=== PATIENT | female | born 1980 | race Caucasian/White ===

== ENCOUNTER 2022-05-01 12:31 | Inpatient (IN) ==
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
[2022-05-01] MEDS ORDERED: SODIUM CHLORIDE 0.9% 500 ML IV SCH (13:00)
[2022-05-01 13:12] LABS: Basophils # (auto) 0.03 K/uL (0-0.2); Basophils % (auto) 0.4 %; Eosinophils # (auto) 0.02 K/uL (0-0.50); Eosinophils % (auto) 0.2 %; Hematocrit (blood only) 42.6 % (34.1-44.9); Hemoglobin 14.6 g/dl (12.0-16.0); Immature Granulocytes # (auto) 0.02 K/uL (0.00-0.02); Immature Granulocytes % (auto) 0.2 %; Lymphocytes # (auto) 0.66 K/uL (1.2-3.4); Lymphocytes % (auto) 8.2 %; Mean Corpuscular Hemoglobin 31.7 pg (25.0-34.0); Mean Corpuscular Hgb Conc 34.3 g/dL (32.0-36.0); Mean Corpuscular Volume 92.6 fL (80.0-100.0); Mean Platelet Volume 11.1 fL (9.4-12.3); Monocytes # (auto) 0.41 K/uL (0.24-0.82); Monocytes % (auto) 5.1 %; Neutrophils % (auto) 85.9 %; Platelet Count 182 K/uL (130-400); RDW Coefficient of Variation 12.5 % (11.5-14.5); RDW Standard Deviation 42.3 fL (36.4-46.3); White Blood Count 8.04 K/ul (4.8-10.8)
[2022-05-01] MEDS ORDERED: ETOMIDATE 2 MG/ML 20 ML VIAL IV ONE (13:25)
[2022-05-01] MEDS ORDERED: SUCCINYLCHOLINE CHLORIDE 20 MG/ML 10 ML VIAL IV ONE (13:25)
[2022-05-01 13:35] LABS: Albumin Globulin Ratio 1.4 (0.9-2); BUN Creatinine Ratio 10.9 (10-20); Bilirubin,Total 0.7 mg/dl (0.2-1.0); Creatinine Clr Calc Pharmacy 69.1 ml/min; Est GFR (Non-African American) 76.8 ml/min; Globulin 2.8 gm/dl (2.5-4.0); Magnesium 2.3 mg/dl (1.7-2.4); Potassium 4.1 mmol/L (3.5-5.1); Total Protein 6.8 gm/dl (6.0-8.3)
[2022-05-01 13:44] LABS: Pregnancy Test, Serum Negative (Negative)
[2022-05-01 13:47] LABS: Prothrombin Time 10.6 Seconds (9.0-12.0)
--- NOTE | 2022-05-01 13:58 | CT Scan Report ---
CT SCAN OF THE BRAIN WITHOUT IV CONTRAST CLINICAL HISTORY: Overdose. Lethargy. COMPARISON STUDY: CT of the brain dated 04/11/2014. TECHNIQUE: Unenhanced axial CT scan of the brain is performed from the vertex to the skull base. A d ose lowering technique was utilized adhering to the principles of ALARA. CT DOSE: 537.48 mGy.cm FINDINGS: Brain parenchyma: The brain parenchyma is normal in appearance. There is no hemorrhage, mass effect, or evidence of acute territorial ischemia by CT criteria. Mejia-white matter differentiation is preser blanca. No extra-axial fluid collection is seen. Ventricles, sulci, cisterns: Normal in configuration. Intracranial vasculature: The visualized intracranial vasculature at the skull base is normal in appe arance. Calvarium: Unremarkable. Sinuses and mastoids: The visualized paranasal sinuses are clear. The mastoid air cells are well pneu matized. Orbits: The bony orbits are grossly intact. IMPRESSION: No acute intracranial abnormality. ACT 112: Negative or not required by law. Electronically signed by: Milan Martin M.D. 05/01/2022 1:56 PM
--- NOTE | 2022-05-01 14:01 | XRay Report ---
SINGLE VIEW CHEST CLINICAL HISTORY: Overdose. FINDINGS: An AP, portable, upright chest radiograph is obtained. No prior studies are available for c omparison at the time of dictation. The cardiomediastinal silhouette is unremarkable. The lungs and p leural spaces are clear noting bibasilar atelectasis. No pneumothorax is seen. The bony thorax is daysi ssly intact. IMPRESSION: No active disease in the chest. ACT 112: Negative or not required by law. Electronically signed by: Milan Martin M.D. 05/01/2022 2:00 PM
[2022-05-01] MEDS ORDERED: RAPID SEQUENCE INDUCTION BAG ONE (14:06)
[2022-05-01] MEDS ORDERED: fentaNYL citrate 100 MCG/2 ML VIAL IV PRN (14:24)
[2022-05-01] MEDS ORDERED: STAT IV Infusion **Titration per Protocol STA (14:34)
[2022-05-01] MEDS ORDERED: PROPOFOL IV EMULSION 10 MG/ML 100 ML VIAL IV ONE (14:35)
[2022-05-01] MEDS: propofoL 1,000 MG/100 ML VIAL IV SCH (14:42)
[2022-05-01 14:43] LABS: Appearance Urine Clear (Clear); Bilirubin Urine Negative (Negative); Blood Urine Negative (Negative); Color Urine Yellow; Glucose Urine UA Negative (Negative); Ketones Urine Negative (Negative); Leukocyte Esterase Urine Negative (Negative); Nitrite Urine Negative (Negative); Protein Urine Negative (Negative); Specific Gravity Urine 1.014 (1.000-1.030); Urobilinogen Urine Negative (Negative)
[2022-05-01] MEDS: PROPOFOL BOLUS FROM BAG IV PRN ×3 (14:43→15:16)
[2022-05-01 14:44] LABS: Acetaminophen < 3 ug/ml (10-30); Salicylate < 3.0 mg/dl (3.0-30)
--- NOTE | 2022-05-01 14:55 | XRay Report ---
SINGLE VIEW CHEST CLINICAL HISTORY: Intubation. FINDINGS: An AP, portable, supine chest radiograph is compared to study dated 05/01/2022. An endotrac heal tube has been placed. The tip projects at the level of the thoracic inlet 6.3 cm above the radha a. The cardiomediastinal silhouette is unremarkable. The lungs and pleural spaces are clear. No pneum othorax is seen. The bony thorax is grossly intact. IMPRESSION: 1. An endotracheal tube is in place. The tip projects at the level of the thoracic inlet. 2. The lungs are clear. ACT 112: Negative or not required by law. Electronically signed by: Milan Martin M.D. 05/01/2022 2:54 PM
[2022-05-01] MEDS ORDERED: SODIUM CHLORIDE 0.9% 1000ML 1,000 ML IV SCH (15:15)
--- NOTE | 2022-05-01 15:17 | History & Physical Report ---
Date of Service May 01, 2022 Assessment & Plan (1) Drug overdose: Plan: -Admit to ICU -At this time the patient is currently afebrile, hemodynamically stable and stable on the ventilator -Per the history, it appears that the patient took both xanax and trazadone, unclear if she did take buspar as well -Intubated to ensure her airway is protected -Will need to follow-up with urine tox screen when resulted -Continue propofol and fentanyl boluses for agitation while admitted -Ordered lactated ringer's at 80 mL/hr for now for maintenance fluids -Ordered am CXR whiled intubated and AM labs, monitor on tele and continuous pulse oximetry -Should consult Psychiatry when the patient has been extubated and alert -AM CBC, CMP, Mag, PT/INR (2) Anxiety: Plan: -Would continue buspar when she is alert and extubated, possibly continue xanax and trazodone but would be cautious (3) HTN (hypertension): Plan: -Hold lisinopril for now as she is hemodynamically stable and intubated Plan The patient was discussed with Dr. Apple at the time of the admission History of Present Illness Chief Complaint: Intentional Drug Overdose Primary Care Provider: NO PCP Radha is a 41 year old female with a PMH significant for anxiety, who presented to the [facility] ED today via EMS for intentional drug overdose. Per EMS and the ED staff, the patient took multiple medications last night at some point. EMS reports the patient sometime either last night or this morning 12 significant amount of trazodone and Xanax. They report they found the patient with an empty bottle of trazodone 50 mg tablets 30 tablets in the bottle unsure how many the patient may have took as the bottle is now empty. The patient also had 2 bottles of Xanax 1 pill 2 days ago for 60 tablets with 14 remaining 1 mg Xanax tablets. Another order bottle of Xanax was also found with the patient but is unclear if any were remaining in this as well. They state in the house they found a bag of some bupropion hidden elsewhere as well but they are unsure if the patient took any. During her time in the ED the patient became progressively more lethargic and there was concern for airway protection, for this reason the patient was intubated by ED staff prior to admission. In the ED the patient was found to be afebrile, hemodynamically stable, and stable on RA prior to intubation. CBC, CMP, PT/INR and UA were all unremarkable. Salicylates, acetaminophen level, and alcohol level were all negative, urine tox screen is pending. She was found to be covid negative. CT of the head and chest xray were negative for acute findings. Prior to admission the patient was started on a Propofol drip and intermittent fentanyl boluses due to increased agitation after intubation. At the time of the exam the patient was resting comfortably in bed in no acute distress. She is currently intubated and on the propofol drip at 35 mcg. History is unable to be obtained from the patient due to her current intubation status. I spoke to her family in the waiting room. They state that the patient has a history of anxiety and HTN, they believe she is normally on Lisinopril. They state that she has been in her normal state of health recently. Her cousin states that she wished her sister a happy anniversary last night on facebook. She has never tried to harm herself or take her life prior to this attempt. They state that her boyfriend found her this morning and then called EMS. Allergies Allergy/AdvReac Type Severity Reaction Status Date / Time Penicillins AdvReac Intermediate HALLUCINATI Verified 05/01/22 15:31 ONS Home Medications Medication Instructions Recorded Confirmed Type alprazolam 1 mg tablet 1 mg PO BID PRN Anxiety 05/01/22 05/01/22 History buspirone 30 mg tablet 30 mg PO BID 05/01/22 05/01/22 History trazodone 50 mg tablet 50 mg PO HS PRN Sleep 05/01/22 05/01/22 History Past Med/Surg History Medical History (Updated 05/01/22 @ 21:14 by Monae Apple MD) Anxiety HTN (hypertension) Surgical History (Updated 05/01/22 @ 21:18 by Monae Apple MD) History of tonsillectomy Family History (Updated 05/01/22 @ 21:19 by Monae Apple MD) Other Family history non-contributory Social History Smoking Status: Current every day smoker Cigarettes Per Day: 4; Hx Alcohol Use: Yes Alcohol type: hard liquor Hx Substance Use: No Preferred Language: Croatian Communication Ability: Effective Aircraft Accessories Mechanic Required: No Beliefs That Will Affect Care: None Current Living Situation: Alone Feels Safe at Home: Declines to Answer Assistive Devices: Contacts and Glasses Review of Systems Review of Systems: ROS unable to be obtained due to current intubation status Physical Exam Physical Exam: Physical Exam: General: In no acute distress, stated age, well-nourished, good hygiene, HEENT: Normocephalic, atraumatic, no scleral icterus, pupils around round, symmetrical, and reactive to light, moist mucus membranes, trachea midline, no thyromegaly Chest/Pulm: Currently intubated and on the ventilator, No respiratory distress, symmetrical chest expansion, clear breath sounds throughout Cardiac: Tachycardic rate, regular rhythm, no murmurs noted Abdomen: Negative for ascites and bruising, normoactive bowel sounds, soft, non-tender to palpation throughout : Patient with mercedes catheter in place, draining clear yellow urine Musculoskeletal: Symmetrical and without signs of acute trauma, upper and lower extremities with full ROM, no atrophy, spasticity, or flaccidity Extremities: Radial, dorsalis pedis, and posterior tibial pulses are intact and symmetrical, no edema noted in the BL LE's Skin: Warm, dry, no rashes , lesions, or scars noted Neuro: Alert and oriented to person, place, month, year, and president, no focal defects, CN II-XII tested and intact, finger to nose test negative, no tremors noted Psych: No acute distress, calm and cooperative during the exam Results & Data Results & Data ([facility]) Vital Signs (Past 12 Hours) Vital Signs Pulse Pulse Resp BP BP Pulse Ox O2 Del Method 05/01/22 15:06 97 H 20 128/88 100 Mechanical Vent 05/01/22 14:57 106 H 13 95 05/01/22 14:57 125/93 05/01/22 14:55 101 H 17 88 L 05/01/22 14:55 128/105 H 05/01/22 14:50 15 93 05/01/22 14:50 132/98 05/01/22 14:45 114/89 05/01/22 14:45 16 05/01/22 14:40 18 98 05/01/22 14:40 153/124 H 05/01/22 14:36 102 H 16 99 05/01/22 14:36 150/100 H 05/01/22 14:35 120 H 18 99 05/01/22 14:30 132 H 24 97 05/01/22 14:30 170/109 H 05/01/22 14:25 121 H 16 100 05/01/22 14:23 163/111 H 05/01/22 14:30 115 H 20 99 05/01/22 14:19 70 11 L 102/66 100 05/01/22 14:00 74 11 L 105/65 100 05/01/22 13:30 63 13 102/71 100 05/01/22 13:09 66 17 103/69 93 05/01/22 12:46 96 Room Air 05/01/22 12:46 96 Room Air 05/01/22 12:47 98 Room Air 05/01/22 12:47 62 15 116/67 98 Room Air FiO2 05/01/22 15:06 05/01/22 14:57 05/01/22 14:57 05/01/22 14:55 05/01/22 14:55 05/01/22 14:50 05/01/22 14:50 05/01/22 14:45 05/01/22 14:45 05/01/22 14:40 05/01/22 14:40 05/01/22 14:36 05/01/22 14:36 05/01/22 14:35 05/01/22 14:30 05/01/22 14:30 05/01/22 14:25 05/01/22 14:23 05/01/22 14:30 40 05/01/22 14:19 05/01/22 14:00 05/01/22 13:30 05/01/22 13:09 05/01/22 12:46 05/01/22 12:46 05/01/22 12:47 05/01/22 12:47 Laboratory Results Abnormal lab results 05/01/22 05/01/22 05/01/22 Range/Units 12:45 12:45 12:45 Neut # (Auto) 6.90 H (1.4-6.5) K/uL Lymph # (Auto) 0.66 L (1.2-3.4) K/uL Chloride 109 H (98-107) mmol/L AST 12 L (13-39) U/L Salicylates < 3.0 L (3.0-30) mg/dl Acetaminophen < 3 L (10-30) ug/ml Diagnostic Findings Head CT 05/01/22 12:47 CT SCAN OF THE BRAIN WITHOUT IV CONTRAST CLINICAL HISTORY: Overdose. Lethargy. COMPARISON STUDY: CT of the brain dated 04/11/2014. TECHNIQUE: Unenhanced axial CT scan of the brain is performed from the vertex to the skull base. A dose lowering technique was utilized adhering to the principles of ALARA. CT DOSE: 537.48 mGy.cm FINDINGS: Brain parenchyma: The brain parenchyma is normal in appearance. There is no hemorrhage, mass effect, or evidence of acute territorial ischemia by CT criteria. Mejia-white matter differentiation is preserved. No extra-axial fluid collection is seen. Ventricles, sulci, cisterns: Normal in configuration. Intracranial vasculature: The visualized intracranial vasculature at the skull base is normal in appearance. Calvarium: Unremarkable. Sinuses and mastoids: The visualized paranasal sinuses are clear. The mastoid air cells are well pneumatized. Orbits: The bony orbits are grossly intact. IMPRESSION: No acute intracranial abnormality. ACT 112: Negative or not required by law. Electronically signed by: Milan Martin M.D. 05/01/2022 1:56 PM Chest X-Ray 05/01/22 13:24 SINGLE VIEW CHEST CLINICAL HISTORY: Overdose. FINDINGS: An AP, portable, upright chest radiograph is obtained. No prior studies are available for comparison at the time of dictation. The cardiomediastinal silhouette is unremarkable. The lungs and pleural spaces are clear noting bibasilar atelectasis. No pneumothorax is seen. The bony thorax is grossly intact. IMPRESSION: No active disease in the chest. ACT 112: Negative or not required by law. Electronically signed by: Milan Martin M.D. 05/01/2022 2:00 PM Chest X-Ray 05/01/22 14:23 SINGLE VIEW CHEST CLINICAL HISTORY: Intubation. FINDINGS: An AP, portable, supine chest radiograph is compared to study dated 05/01/2022. An endotracheal tube has been placed. The tip projects at the level of the thoracic inlet 6.3 cm above the ina. The cardiomediastinal silhouette is unremarkable. The lungs and pleural spaces are clear. No pneumothorax is seen. The bony thorax is grossly intact. IMPRESSION: 1. An endotracheal tube is in place. The tip projects at the level of the thoracic inlet. 2. The lungs are clear. ACT 112: Negative or not required by law. Electronically signed by: Milan Martin M.D. 05/01/2022 2:54 PM ECG Additional Comments: 70 bpm sinus rhythm without PVC or PAC. QTc 470. QRS duration [address] segment elevation or depression with some nonspecific T wave changes. Code Status & VTE Plan Code Status FUll code VTE Prophylaxis Plan VTE Prophylaxis will be ordered: Yes Supervising Physician Co-Signing Physician Notes PA Supervision Note: I personally saw and examined the patient. I verified all garrett points and agree with SOUMYA Wright with the following exceptions and/or additions: S-this patient is a 41-year-old female with history of anxiety and possibly hypertension who presented to the ER after being found to be lethargic and suspected overdose of trazodone, Xanax, and possibly buspirone. She was already intubated by the time I saw her due to concern for airway protection due to significant lethargy in the ER. She was unable to provide any history. History obtained from family as per SOUMYA Wright's note above. O- Vitals reviewed Gen: [Sedated, intubated mechanically ventilated, NAD, thin] HEENT: [anicteric sclerae, EOMI, PERRL] CV: [RRR no mgr nl S1S2] Pulm: [CTAB no wcr] Abd: [+BS soft NT ND no masses or hernias] Ext: [no edema, 2+ DP pulses] Skin: [no rashes, warm/dry] Neuro: [Moving all extremities throughout spontaneously] Labs, Rads, and ECG reviewed A/K-3-hy[age]old female with history of anxiety and possibly hypertension, here with what seems to be an intentional overdose of trazodone, Xanax, and possibly buspirone. Urine drug screen is positive for benzodiazepines, marijuana, and ecstasy which may be a false positive due to bupropion or buspirone-both of which she has been prescribed in the recent past. Salicylates and APAP as well as alcohol are negative. CBC and CMP otherwise normal. Chest x-ray without pneumonia, UA is negative. She is intubated for airway protection due to significant lethargy from overdose. ECG with borderline prolonged QTC. Poison control recommended to the ER physician to recheck an EKG in 4 hours from the last to ensure QT was okay. -Admit to ICU -Appreciate ventilator management and encoding clerk management-plan to extubate when wakes up off of sedation -will need consult with psychiatry due to suicidal attempt and further explore depression -Supportive care, maintenance IV fluids, Mercedes catheter in place, no tube feeds for now as she will likely be extubated in a short amount of time -Follow labs in the morning -Hold all home medications for now PG Care Time/CCT Total # of Minutes Spent Total Time Spent with Patient: Total time spent is greater than 50% in coordination of care (as documented) at patient's floor/unit and/or counseling patient: Coding [place] [id number] Initial Inpt Care Lvl 2 Patient Type Established Medical Decision Making Moderate Complexity Diagnoses Drug overdose T50.904A Encounter type: initial encounter Injury intent: undetermined intent Anxiety F41.9 HTN (hypertension) I10 (1) Drug overdose Encounter type: initial encounter Injury intent: undetermined intent Qualified Code(s): T50.904A - Poisoning by unspecified drugs, medicaments and biological substances, undetermined, initial encounter
[2022-05-01 15:40] LABS: Amphetamines+Metham, Urine Neg (Neg); Barbiturates, Urine Neg (Neg); Benzodiazepine, Urine Pos (Neg); Cocaine, Urine Neg (Neg); MDMA (Ecstacy), Urine Pos (Neg); Methadone, Urine Neg (Neg); Opiate, Urine Neg (Neg); Phencyclidine, Urine Neg (Neg)
[2022-05-01] MEDS ORDERED: ICU PROTOCOL FOR HYPERGLYCEMIA PRN (16:18)
--- NOTE | 2022-05-01 16:32 | Critical Care Consultation ---
Date of Consultation May 01, 2022 Assessment & Plan (1) Drug overdose: Plan Impression: 41-year-old female with presumptive overdose of benzodiazepines, possible trazodone, and possibly bupropion intubated for airway protection in the emergency room. She is hemodynamically stable. Urine tox is as noted above. No anion gap. No evidence of other ingestions. Her EKG demonstrated normal QRS and QT without prolongation Recommendations: 1. Propofol will be discontinued. Once the patient is awake and breathing spontaneously, she will be extubated. 2. Supportive care will be offered. Given short half-life of benzodiazepines, the patient is not at risk for rebound. No indication for reversal agents currently. 3. Potential suicide events: Continue suicide precautions. The patient will require psychiatric evaluation once medically cleared. 4. We will hold all of her other antianxiety and antidepressant medications until the patient has had an opportunity to be evaluated by psychiatry and she is cleared. 5. At this point time the patient likely does not need DVT or GI prophylaxis as anticipate she will be extubated and relative short order. Once the patient is extubated, she can transfer out of the intensive care unit. Critical care services will sign off at that point time. Plan was discussed with critical care nursing, respiratory therapy, and family members at bedside. Questions were answered to the best my ability. They expressed understanding and are in agreement with plan as outlined History of Present Illness Attending Physician: Monae Apple MD History of Present Illness Asked by hospitalist to assist in evaluation management this patient intubated for overdose. History is obtained from review electronic medical record and discussion with the ER staff as the patient is unable to provide any history. Family members were interviewed at bedside. The patient is a 41-year-old female with a history of hypertension anxiety and depression. She was apparently found altered today and was brought into the emergency room. According to the ER notes, the patient had an altercation with her significant other and this may have been a suicide attempt. Reportedly there were about 40+ tablets of Xanax that were missing as well as potential trazodone and bupropion. The patient became lethargic in the emergency room and was intubated for airway protection. She was initiated on propofol. Her remaining evaluation in the emergency room was unrevealing. On assessment in the ICU the patient is sedated on propofol. I positive and transitioned her to spontaneous ventilation. She appears to be breathing currently but remains somewhat lethargic likely due to propofol. She is hemodynamically stable. Allergies Allergy/AdvReac Type Severity Reaction Status Date / Time Penicillins AdvReac Intermediate HALLUCINATI Verified 05/01/22 15:31 ONS Home Medications Medication Instructions Recorded Confirmed Type alprazolam 1 mg tablet 1 mg PO BID PRN Anxiety 05/01/22 05/01/22 History buspirone 30 mg tablet 30 mg PO BID 05/01/22 05/01/22 History trazodone 50 mg tablet 50 mg PO HS PRN Sleep 05/01/22 05/01/22 History Patient History Social History Smoking Status: Current every day smoker Preferred Language: Frisian Feels Safe at Home: Yes Review of Systems Review of Systems: Unobtainable due to endotracheal tube Physical Exam Constitutional: WD/WN, vitals as above Neck: trachea midline, no thyromegaly Respiratory: normal respiratory effort, lungs clear to auscultation Cardiovascular: RRR, no murmur, no edema Gastrointestinal (Abdomen): normal bowel sounds, soft, nontender, no hepatosplenomegaly Musculoskeletal: Extremities: extremities normal to inspection Skin: no rashes, warm and dry Neurologic: Nonfocal exam Lymphatic: no cervical lymphadenopathy Results & Data Results & Data ([facility]) Vital Signs (Past 12 Hours) Vital Signs Pulse Pulse Resp BP BP Pulse Ox O2 Del Method 05/01/22 16:04 84 17 100 05/01/22 15:42 92 H 17 134/80 100 Mechanical Vent 05/01/22 15:30 94 H 18 135/80 99 05/01/22 15:18 92 H 17 126/83 100 Mechanical Vent 05/01/22 15:06 97 H 20 128/88 100 Mechanical Vent 05/01/22 14:57 106 H 13 95 05/01/22 14:57 125/93 05/01/22 14:55 101 H 17 88 L 05/01/22 14:55 128/105 H 05/01/22 14:50 15 93 05/01/22 14:50 132/98 05/01/22 14:45 114/89 05/01/22 14:45 16 05/01/22 14:40 18 98 05/01/22 14:40 153/124 H 05/01/22 14:36 102 H 16 99 05/01/22 14:36 150/100 H 05/01/22 14:35 120 H 18 99 05/01/22 14:30 132 H 24 97 05/01/22 14:30 170/109 H 05/01/22 14:25 121 H 16 100 05/01/22 14:23 163/111 H 05/01/22 14:30 115 H 20 99 05/01/22 14:19 70 11 L 102/66 100 05/01/22 14:00 74 11 L 105/65 100 05/01/22 13:30 63 13 102/71 100 05/01/22 13:09 66 17 103/69 93 05/01/22 12:46 96 Room Air 05/01/22 12:46 96 Room Air 05/01/22 12:47 98 Room Air 05/01/22 12:47 62 15 116/67 98 Room Air FiO2 05/01/22 16:04 30 05/01/22 15:42 05/01/22 15:30 05/01/22 15:18 05/01/22 15:06 05/01/22 14:57 05/01/22 14:57 05/01/22 14:55 05/01/22 14:55 05/01/22 14:50 05/01/22 14:50 05/01/22 14:45 05/01/22 14:45 05/01/22 14:40 05/01/22 14:40 05/01/22 14:36 05/01/22 14:36 05/01/22 14:35 05/01/22 14:30 05/01/22 14:30 05/01/22 14:25 05/01/22 14:23 05/01/22 14:30 40 05/01/22 14:19 05/01/22 14:00 05/01/22 13:30 05/01/22 13:09 05/01/22 12:46 05/01/22 12:46 05/01/22 12:47 05/01/22 12:47 Laboratory Results Anion gap normal Urine tox positive for MDMA, benzodiazepines, and marijuana Critical Care Results & Data Vital Signs (Past 12 Hours) Vital Signs Pulse Pulse Resp BP BP Pulse Ox O2 Del Method 05/01/22 16:04 84 17 100 05/01/22 15:42 92 H 17 134/80 100 Mechanical Vent 05/01/22 15:30 94 H 18 135/80 99 05/01/22 15:18 92 H 17 126/83 100 Mechanical Vent 05/01/22 15:06 97 H 20 128/88 100 Mechanical Vent 05/01/22 14:57 106 H 13 95 05/01/22 14:57 125/93 05/01/22 14:55 101 H 17 88 L 05/01/22 14:55 128/105 H 05/01/22 14:50 15 93 05/01/22 14:50 132/98 05/01/22 14:45 114/89 05/01/22 14:45 16 05/01/22 14:40 18 98 05/01/22 14:40 153/124 H 05/01/22 14:36 102 H 16 99 05/01/22 14:36 150/100 H 05/01/22 14:35 120 H 18 99 05/01/22 14:30 132 H 24 97 05/01/22 14:30 170/109 H 05/01/22 14:25 121 H 16 100 05/01/22 14:23 163/111 H 05/01/22 14:30 115 H 20 99 05/01/22 14:19 70 11 L 102/66 100 05/01/22 14:00 74 11 L 105/65 100 05/01/22 13:30 63 13 102/71 100 05/01/22 13:09 66 17 103/69 93 05/01/22 12:46 96 Room Air 05/01/22 12:46 96 Room Air 05/01/22 12:47 98 Room Air 05/01/22 12:47 62 15 116/67 98 Room Air FiO2 05/01/22 16:04 30 05/01/22 15:42 05/01/22 15:30 05/01/22 15:18 05/01/22 15:06 05/01/22 14:57 05/01/22 14:57 05/01/22 14:55 05/01/22 14:55 05/01/22 14:50 05/01/22 14:50 05/01/22 14:45 05/01/22 14:45 05/01/22 14:40 05/01/22 14:40 05/01/22 14:36 05/01/22 14:36 05/01/22 14:35 05/01/22 14:30 05/01/22 14:30 05/01/22 14:25 05/01/22 14:23 05/01/22 14:30 40 05/01/22 14:19 05/01/22 14:00 05/01/22 13:30 05/01/22 13:09 05/01/22 12:46 05/01/22 12:46 05/01/22 12:47 05/01/22 12:47 Lab & Micro Results (Past 24 Hours) RBC 4.60 M/uL (3.93-5.22) 05/01/22 WBC 8.04 K/ul (4.8-10.8) 05/01/22 Hgb 14.6 g/dl (12.0-16.0) 05/01/22 Hct 42.6 % (34.1-44.9) 05/01/22 MCV 92.6 fL (80.0-100.0) 05/01/22 MCH 31.7 pg (25.0-34.0) 05/01/22 MCHC 34.3 g/dL (32.0-36.0) 05/01/22 RDW Standard Deviation 42.3 fL (36.4-46.3) 05/01/22 RDW Coefficient of Variation 12.5 % (11.5-14.5) 05/01/22 Plt Count 182 K/uL (130-400) 05/01/22 MPV 11.1 fL (9.4-12.3) 05/01/22 Neutrophils (%) (Auto) 85.9 % 05/01/22 Lymphocytes (%) (Auto) 8.2 % 05/01/22 Monocytes # (Auto) 0.41 K/uL (0.24-0.82) 05/01/22 Eosinophils # (Auto) 0.02 K/uL (0-0.50) 05/01/22 Immature Granulocyte % (Auto) 0.2 % 05/01/22 Neutrophils # (Auto) 6.90 K/uL (1.4-6.5) H 05/01/22 Lymphocytes # (Auto) 0.66 K/uL (1.2-3.4) L 05/01/22 Monocytes # (Auto) 0.41 K/uL (0.24-0.82) 05/01/22 Eosinophils # (Auto) 0.02 K/uL (0-0.50) 05/01/22 Basophils # (Auto) 0.03 K/uL (0-0.2) 05/01/22 Immature Granulocyte # (Auto) 0.02 K/uL (0.00-0.02) 2 Na 142 mmol/L (136-145) 05/01/22 K 4.1 mmol/L (3.5-5.1) 05/01/22 Cl 109 mmol/L (98-107) H 05/01/22 CO2 26 mmol/L (21-32) 05/01/22 Anion Gap 7 (3-11) 05/01/22 BUN 10 mg/dl (6-23) 05/01/22 Creatinine 0.92 mg/dl (0.6-1.2) 05/01/22 Estimated GFR ( Amer) 89.0 ml/min 05/01/22 Estimated GFR (Non-Af Amer) 76.8 ml/min 05/01/22 BUN/Creatinine Ratio 10.9 (10-20) 05/01/22 Glu 84 mg/dl (70-99(Fasting)) 05/01/22 Ca 9.0 mg/dl (8.5-10.1) 05/01/22 Total Bilirubin 0.7 mg/dl (0.2-1.0) 05/01/22 AST 12 U/L (13-39) L 05/01/22 ALT 8 U/L (7-52) 05/01/22 Alkaline Phosphatase 64 U/L (34-104) 05/01/22 TP 6.8 gm/dl (6.0-8.3) 05/01/22 Albumin 4.0 gm/dl (3.4-5.0) 05/01/22 Globulin 2.8 gm/dl (2.5-4.0) 05/01/22 Albumin/Globulin Ratio 1.4 (0.9-2) 05/01/22 Mg 2.3 mg/dl (1.7-2.4) 05/01/22 12:45 Calcium Level 9.0 mg/dl (8.5-10.1) 05/01/22 12:45 Prothromb Time International Ratio 1.0 (0.9-1.1) 05/01/22 12:4 5 Diagnostic Findings (Past 24 Hours) Head CT 05/01/22 12:47 CT SCAN OF THE BRAIN WITHOUT IV CONTRAST CLINICAL HISTORY: Overdose. Lethargy. COMPARISON STUDY: CT of the brain dated 04/11/2014. TECHNIQUE: Unenhanced axial CT scan of the brain is performed from the vertex to the skull base. A dose lowering technique was utilized adhering to the principles of ALARA. CT DOSE: 537.48 mGy.cm FINDINGS: Brain parenchyma: The brain parenchyma is normal in appearance. There is no hemorrhage, mass effect, or evidence of acute territorial ischemia by CT criteria. Mejia-white matter differentiation is preserved. No extra-axial fluid collection is seen. Ventricles, sulci, cisterns: Normal in configuration. Intracranial vasculature: The visualized intracranial vasculature at the skull base is normal in appearance. Calvarium: Unremarkable. Sinuses and mastoids: The visualized paranasal sinuses are clear. The mastoid air cells are well pneumatized. Orbits: The bony orbits are grossly intact. IMPRESSION: No acute intracranial abnormality. ACT 112: Negative or not required by law. Electronically signed by: Milan Martin M.D. 05/01/2022 1:56 PM Chest X-Ray 05/01/22 13:24 SINGLE VIEW CHEST CLINICAL HISTORY: Overdose. FINDINGS: An AP, portable, upright chest radiograph is obtained. No prior studies are available for comparison at the time of dictation. The cardi omediastinal silhouette is unremarkable. The lungs and pleural spaces are clear noting bibasilar atelectasis. No pneumothorax is seen. The bony thorax is grossly intact. IMPRESSION: No active disease in the chest. ACT 112: Negative or not required by law. Electronically signed by: Milan Martin M.D. 05/01/2022 2:00 PM Chest X-Ray 05/01/22 14:23 SINGLE VIEW CHEST CLINICAL HISTORY: Intubation. FINDINGS: An AP, portable, supine chest radiograph is compared to study dated 05/01/2022. An endotracheal tube has been placed. The tip projects at the level of the thoracic inlet 6.3 cm above the ina. The cardiomediastinal silhouette is unremarkable. The lungs and pleural spaces are clear. No pneumothorax is seen. The bony thorax is grossly intact. IMPRESSION: 1. An endotracheal tube is in place. The tip projects at the level of the thoracic inlet. 2. The lungs are clear. ACT 112: Negative or not required by law. Electronically signed by: Milan Martin M.D. 05/01/2022 2:54 PM I & O Totals 24 Hours 04/30/22 05/01/22 05/02/22 06:59 06:59 06:59 Intake Total 503.207 / 503.207 Balance 503.207 / 503.207 Cumulative 05/01/22 12:11 thru 05/01/22 15:03 Intake Total 503.207 Balance 503.207 RT Ventilator Mngmt (Last Documented) Ventilator Ordered Settings Ventilator Support Mode Assist Control 05/01/22 16:04 Respiratory Rate 17 05/01/22 16:04 Ventilator Tidal Volume 450 05/01/22 16:04 Setting Minute Ventilation 7 05/01/22 16:04 Positive End Expiratory 5 05/01/22 16:04 Pressure Fraction of Inspired Oxygen 30 05/01/22 16:04 Ventilator - PT Measurements Respiratory Rate 17 Exhaled Tidal Volume 452 Minute Ventilation 7 Peak Inspiratory Airway 18 Pressure Plateau Pressure 16 Respiratory Cycle Inspiratory: 1:2.7 Expiratory Ratio Inspiratory Phase Time 1 End-Tidal CO2 35 Static Lung Compliance 41.09 Dynamic Lung Compliance 34.77 Normal Static Lung Compliance 48.00 Coding Level of Care Code 68149 Inpt Consult Level 4 Diagnoses Drug overdose T50.904A Encounter type: initial encounter Injury intent: undetermined intent (1) Drug overdose Encounter type: initial encounter Injury intent: undetermined intent Qualified Code(s): T50.904A - Poisoning by unspecified drugs, medicaments and biological substances, undetermined, initial encounter
[2022-05-01] MEDS: LACTATED RINGER'S 1,000 ML IV SCH (17:54)
[2022-05-02] MEDS: propofoL 1,000 MG/100 ML VIAL IV SCH (03:44)
[2022-05-02] MEDS: LACTATED RINGER'S 1,000 ML IV SCH (04:03)
[2022-05-02 05:59] LABS: Basophils # (auto) 0.03 K/uL (0-0.2); Basophils % (auto) 0.3 %; Hematocrit (blood only) 40.7 % (34.1-44.9); Hemoglobin 13.8 g/dl (12.0-16.0); Immature Granulocytes # (auto) 0.04 K/uL (0.00-0.02); Immature Granulocytes % (auto) 0.4 %; Lymphocytes # (auto) 1.09 K/uL (1.2-3.4); Lymphocytes % (auto) 10.4 %; Mean Corpuscular Hgb Conc 33.9 g/dL (32.0-36.0); Mean Corpuscular Volume 94.4 fL (80.0-100.0); Mean Platelet Volume 11.3 fL (9.4-12.3); Monocytes # (auto) 0.81 K/uL (0.24-0.82); Monocytes % (auto) 7.7 %; Neutrophils % (auto) 80.2 %; Platelet Count 149 K/uL (130-400); RDW Coefficient of Variation 12.2 % (11.5-14.5); RDW Standard Deviation 42.4 fL (36.4-46.3); Red Blood Count 4.31 M/uL (3.93-5.22); White Blood Count 10.47 K/ul (4.8-10.8)
[2022-05-02 06:16] LABS: Prothrombin Time 10.3 Seconds (9.0-12.0)
[2022-05-02 06:29] LABS: Albumin Globulin Ratio 1.7 (0.9-2); Albumin Level 3.6 gm/dl (3.4-5.0); BUN Creatinine Ratio 8.4 (10-20); Bilirubin,Total 0.9 mg/dl (0.2-1.0); Calcium 8.2 mg/dl (8.5-10.1); Creatinine Clr Calc Pharmacy 75.6 ml/min; Est GFR (African American) 100.8 ml/min; Globulin 2.1 gm/dl (2.5-4.0); Magnesium 1.9 mg/dl (1.7-2.4); Phosphorus 2.7 mg/dl (2.5-4.9); Potassium 3.6 mmol/L (3.5-5.1); Total Protein 5.7 gm/dl (6.0-8.3)
[2022-05-02] MEDS ORDERED: FLUARIX QUADRIVALENT 0.5 ML SYR IM ONE (09:00)
--- NOTE | 2022-05-02 09:42 | Critical Care Progress Note ---
Date of Service May 02, 2022 Assessment & Plan (1) Drug overdose: Plan: Reason Critically Ill: 41-year-old female here with a PMHx significant for hypertension, anxiety, and depression who presented with altered mentation and who was admitted for drug overdose (benzodiazepines, trazodone, or bupropion). Neuro - CAM ICU: NEGATIVE Sedation: None Analgesia: None Cardiac - * Hypertension: Patient is apparently managed with lisinopril, which was not seen in her chart. Holding antihypertensives. Patient MAP currently >65. Respiratory - * Hypoxia: Patient is currently saturating well on 3 L oxygen delivered via nasal cannula. She remains tachypneic, with rates in the mid 20s. This should improve with ventilatory support. GI - * N.p.o. reevaluate once patient awakes RENAL/LYTES - * No significant electrolyte derangement. * Replace lytes as needed. - * No concerns at this time. ENDO * No concerns at this time. HEME - * Stable H&H. * Will monitor for any drops in the setting of Heparin gtt ID - * No concerns for infection at this point. * Monitor fever curve. INTEGUMENTARY - * No concerns at this time. LINES/IV ACCESS - PIVs intact. DVT PROPHYLAXIS - * Heparin gtt. Thank you for allowing us to be part of this patient's care. Please refer to Dr. Yoon's documentation for any further recommendations. Plan Dr. Frank was resident physician during care of patient. I separately evaluated patient for garrett portions of the history and the exam. I was present during the critical portion of medical decision making, and I discussed the case with the resident. I generally agree with the findings and plan. Patient was able to follow commands this morning, successfully extubated. Advised psychiatry of extubation. Patient stable for downgrade out of ICU. -Added Lovenox for DVT prophylaxis secondary to patient not being in the ambulatory status. Admission and Anticipated Discharge Date Admission Date: May 01, 2022 Subjective No acute events overnight. No acute complaints at this time. Review of Systems Review of Systems: All systems reviewed & are unremarkable except as noted in HPI & below Physical Exam Physical Exam: General: Intubated on Mechanical Ventilator, Ill Appearing, No outward distress HEENT: Neck supple, Trachea midline Cardiac: RRR, No Murmurs, No Rubs, No Gallops Respiratory: Intubated on mechanical ventilation, No wheezing, No rales, No rhonchi Abdominal: To auscultation bowel sounds present in all four quadrants, To palpitation abd is soft with no tenderness to palpitation, no hepatosplenomegaly, no pulsatile masses Results & Data Results & Data ([facility]) Vital Signs (Past 12 Hours) Vital Signs Temp Pulse Resp BP BP Pulse Ox FiO2 05/02/22 08:30 78 25 H 98 05/02/22 08:00 93 H 27 H 99 05/02/22 08:00 123/86 05/02/22 08:00 37.4 C 05/02/22 07:10 84 14 98 30 05/02/22 05:00 89 14 99 05/02/22 04:30 92 H 16 99 05/02/22 05:14 37.3 C 05/02/22 04:05 85 21 97 05/02/22 04:00 85 17 96 05/02/22 04:00 103/67 05/02/22 03:55 88 17 97 05/02/22 03:50 91 H 17 97 05/02/22 04:00 30 05/02/22 03:30 88 19 97 05/02/22 03:00 96 H 16 98 05/02/22 03:00 121/81 05/02/22 02:30 92 H 22 100 05/02/22 01:30 129 H 26 H 96 05/02/22 01:00 85 17 97 05/02/22 01:00 103/63 05/02/22 00:30 88 16 98 05/02/22 03:27 100 H 12 97 30 05/01/22 23:45 94 H 13 99 30 05/02/22 00:00 98 H 12 100 05/02/22 00:00 146/86 H 05/02/22 00:00 30 05/01/22 23:00 86 15 98 05/01/22 23:00 37.4 C 124/85 05/01/22 22:51 90 05/01/22 22:00 86 17 98 05/01/22 22:00 135/89 Resident Activity Tracking Resident Involvement: Resident Care Provided Care Provided: Adult Hospital Medicine (1) Drug overdose Encounter type: initial encounter Injury intent: undetermined intent Qualified Code(s): T50.904A - Poisoning by unspecified drugs, medicaments and biological substances, undetermined, initial encounter
[2022-05-02] MEDS ORDERED: SODIUM CHLORIDE 0.9% 250 ML IV PRN (10:15)
[2022-05-02] MEDS ORDERED: ENOXAPARIN INJ 30 MG/0.3 ML SYR SQ ONE (10:15)
--- NOTE | 2022-05-02 12:26 | XRay Report ---
XR chest 1V portable CLINICAL HISTORY: Intubation status TECHNIQUE: Single frontal radiograph of the chest was obtained. Comparison: Comparison is made to chest radiograph 05/01/2022 FINDINGS: Endotracheal tube is in satisfactory position, the tip is approximately 30 mm of the ina. The card iomediastinal silhouette is normal. The lungs are clear. No evidence of pleural effusion or pneumotho rax. IMPRESSION: Satisfactory position of endotracheal tube. No acute abnormalities are seen. ACT 112: Negative or not required by law. Electronically signed by: Ant Centeno M.D. 05/02/2022 12:24 PM
--- NOTE | 2022-05-02 12:27 | Billing Data ---
Date of Service May 02, 2022 Coding Level of Care Code 39369 Subseq Hosp Care Lvl 2
--- NOTE | 2022-05-02 13:03 | Psychiatric Consultation ---
Date of Consultation May 02, 2022 Impression / Recommendations Impression 41 yo female s/p benzo and trazodone OD, takes Xanax 1 mg BID chronically, reports intentional suicide attempt. (1) Major depression: (2) Drug overdose: Encounter type: initial encounter Injury intent: undetermined intent Qualified Code(s): T50.904A - Poisoning by unspecified drugs, medicaments and biological substances, undetermined, initial encounter (3) Anxiety: Plan inpatient psychiatric hospitalization when medically cleared cannot leave hospital AMA as significant OD and would meet criteria for 302 commitment, currently states she is willing for voluntary but MS is still clearing. 1 on 1 on med floor as suicide attempt and not in low ligature environment would not restart any psychiatric medications at this time, stopping Xanax abruptly could cause some withdrawal symptoms after this acute phase, would prefer prn Ativan 0.5 mg q 4 hr for withdrawal only over additional Xanax. Psych History Identifying Data 41 yo female with hx of anxiety/depression, admit ICU s/p intentional ingestion of significant amount of Xanax and trazodone. Was intubated in ED due to sedation for airway protection, just extubated this am. Chief Complaint some ongoing confusion/sedation, 1-on-1 at bedside, sister also present with patient's permission. History of Present Illness Patient was still rather limited in history, completed a PHQ-9 which was 26 (scored 3 on everything, including SI except 2 on appetite). Family initially thought she seemed fine and that this attempt was out of the blue but there was some concern about a recent argument with her paramour. Patient admit to liaison that she had planned the ingestion. She had just filled Xanax 1 mg BID (p rescribed in this dose all year by outpatient psychiatrist Dr. Burk) for 60 pills, only 14 lift, unknown amount of trazodone. It is unclear whether she took any buspar or an old rx of Wellbutrin. Patient is having some tremor and ongoing sedation/low BP but will be moving from ICU to medical floor. Past Psychiatric History Outpatient Services: [facility] Previous Psych Admissions: none History of Previous Suicide Attempt: No Past Medication Trials: Zoloft, Wellbutrin, Lexapro, Buspar Allergies Allergy/AdvReac Type Severity Reaction Status Date / Time Penicillins AdvReac Intermediate HALLUCINATI Verified 10/23/22 15:31 ONS Home Medications Medication Instructions Recorded Confirmed Type alprazolam 1 mg tablet 1 mg PO BID PRN Anxiety 05/01/22 05/01/22 History buspirone 30 mg tablet 30 mg PO BID 05/01/22 05/01/22 History trazodone 50 mg tablet 50 mg PO HS PRN Sleep 05/01/22 05/01/22 History Family History believes her mother was depressed Substance Abuse History some MJ use, occasional ETOH Personal History Living Arrangements: Home (with boyfriend, 6 yo son) Highest Grade Completed: College 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[employer]) Beliefs That Will Affect Care: None History of Legal Problems: denied Psychological Trauma History Comment: no elicited Patient History Medical History Anxiety HTN (hypertension) Surgical History History of tonsillectomy Family History (Updated 05/01/22 @ 21:19 by Monae Apple MD) Other Family history non-contributory Social History Smoking Status: Current every day smoker Cigarettes Per Day: 4; Hx Alcohol Use: Yes Alcohol type: hard liquor Hx Substance Use: No Preferred Language: Hungarian Communication Ability: Effective 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 Beliefs That Will Affect Care: None Current Living Situation: Alone Feels Safe at Home: Declines to Answer Assistive Devices: None Physical Exam Psychiatric: Orientation: alert Apperance: + disheveled Eye Contact: + poor eye contact Motor Behavior: no abnormal motor movements Speech: + abnormal rate/rhythm/volume of speech (slow, soft) Affect: + depressed affect Mood: + depressed mood Thought Process: + concrete thought process Thought Content: reality based without delusions Suicidal Thoughts: denies suicidal plan (that would act on in hospital) and denies suicidal intent; + reports suicidal thoughts Homicidal Thoughts: denies homicidal thoughts Hallucinations: no auditory hallucinations and no visual hallucinations Cognition: language grossly intact; + attention not intact Insight: + limited insight Judgement: + limited judgement Vital Signs (Past 24 Hours): Last Vital Signs Temp 37.4 C 05/02/22 08:00 Pulse 78 05/02/22 11:00 Resp 33 H 05/02/22 11:00 BP 83/61 L 05/02/22 10:35 Pulse Ox 98 05/02/22 11:00 O2 Del Method 05/01/22 19:32 FiO2 30 05/02/22 07:10 Review of Systems All systems reviewed & are unremarkable except as noted in HPI & below Results & Data (PSY) Laboratory Results 05/02/22 05/02/22 05/02/22 Range/Units 07:23 05:14 05:14 WBC (4.8-10.8) K/ul RBC (3.93-5.22) M/uL Hgb (12.0-16.0) g/dl Hct (34.1-44.9) % MCV (80.0-100.0) fL MCH (25.0-34.0) pg MCHC (32.0-36.0) g/dL RDW Std Deviation (36.4-46.3) fL RDW Coeff of Carolyn (11.5-14.5) % Plt Count (130-400) K/uL MPV (9.4-12.3) fL Immature Gran % (Auto) % Neut % (Auto) % Lymph % (Auto) % Cannon % (Auto) % Eos % (Auto) % Baso % (Auto) % Neut # (Auto) (1.4-6.5) K/uL Lymph # (Auto) (1.2-3.4) K/uL Cannon # (Auto) (0.24-0.82) K/uL Eos # (Auto) (0-0.50) K/uL Baso # (Auto) (0-0.2) K/uL Immature Gran # (Auto) (0.00-0.02) K/uL PT 10.3 (9.0-12.0) Seconds INR 1.0 (0.9-1.1) Sodium 141 (136-145) mmol/L Potassium 3.6 (3.5-5.1) mmol/L Chloride 111 H (98-107) mmol/L Carbon Dioxide 26 (21-32) mmol/L Anion Gap 4 (3-11) BUN 7 (6-23) mg/dl Creatinine 0.83 (0.6-1.2) mg/dl Est Cr Clr Drug Dosing 75.6 ml/min Est GFR ( Amer) 100.8 ml/min Est GFR (Non-Af Amer) 87.0 ml/min BUN/Creatinine Ratio 8.4 L (10-20) Glucose 89 (70-99(Fasting)) mg/dl POC Glucose 90 (70-99) mg/dl Calcium 8.2 L (8.5-10.1) mg/dl Phosphorus 2.7 (2.5-4.9) mg/dl Magnesium 1.9 (1.7-2.4) mg/dl Total Bilirubin 0.9 (0.2-1.0) mg/dl AST 16 (13-39) U/L ALT 9 (7-52) U/L Alkaline Phosphatase 63 (34-104) U/L Total Creatine Kinase (26-192) U/L Total Protein 5.7 L (6.0-8.3) gm/dl Albumin 3.6 (3.4-5.0) gm/dl Globulin 2.1 L (2.5-4.0) gm/dl Albumin/Globulin Ratio 1.7 (0.9-2) HCG, Qual (Negative) Urine Color Urine Appearance (Clear) Urine pH (4.5-7.5) Ur Specific [place] (1.000-1.030) Urine Protein (Negative) Urine Glucose (UA) (Negative) Urine Ketones (Negative) Urine Blood (Negative) Urine Nitrite (Negative) Urine Bilirubin (Negative) Urine Urobilinogen (Negative) Ur Leukocyte Esterase (Negative) Nasal Screen MRSA (PCR) (Negative) Salicylates (3.0-30) mg/dl Urine Opiates Screen (Neg) Ur Methadone, Qual (Neg) Acetaminophen (10-30) ug/ml Urine Barbiturates (Neg) Ur Phencyclidine (PCP) (Neg) U Amphetamin/Meth Scrn (Neg) Urine MDEA MDMA (Ecstasy) Screen (Neg) MDMA Urine MDMA U OH-Alprazolam Confrm U Benzodiazepines Scrn (Neg) 7-Amino Clonazepam Ur Nordiazepam Confirm U OH-ethylflurazepam U Lorazepam Cnf GC/MS U Oxazepam Confm GC/MS Ur Temazepam Confirm U OH-Triazolam Confirm U OH-Midazolam Confirm Ur Cocaine Metabolite (Neg) U Marijuana (THC) Screen (Neg) U Marijuana THC Carboxy Drug Screen Comment Ethyl Alcohol mg/dL (<10.0) mg/dl SARS-CoV-2, RNA, NAAT (NEGATIVE) 05/02/22 05/01/22 05/01/22 Range/Units 05:14 Unknown 23:27 WBC 10.47 (4.8-10.8) K/ul RBC 4.31 (3.93-5.22) M/uL Hgb 13.8 (12.0-16.0) g/dl Hct 40.7 (34.1-44.9) % MCV 94.4 (80.0-100.0) fL MCH 32.0 (25.0-34.0) pg MCHC 33.9 (32.0-36.0) g/dL RDW Std Deviation 42.4 (36.4-46.3) fL RDW Coeff of Carolyn 12.2 (11.5-14.5) % Plt Count 149 (130-400) K/uL MPV 11.3 (9.4-12.3) fL Immature Gran % (Auto) 0.4 % Neut % (Auto) 80.2 % Lymph % (Auto) 10.4 % Cannon % (Auto) 7.7 % Eos % (Auto) 1.0 % Baso % (Auto) 0.3 % Neut # (Auto) 8.40 H (1.4-6.5) K/uL Lymph # (Auto) 1.09 L (1.2-3.4) K/uL Cannon # (Auto) 0.81 (0.24-0.82) K/uL Eos # (Auto) 0.10 (0-0.50) K/uL Baso # (Auto) 0.03 (0-0.2) K/uL Immature Gran # (Auto) 0.04 H (0.00-0.02) K/uL PT (9.0-12.0) Seconds INR (0.9-1.1) Sodium (136-145) mmol/L Potassium (3.5-5.1) mmol/L Chloride (98-107) mmol/L Carbon Dioxide (21-32) mmol/L Anion Gap (3-11) BUN (6-23) mg/dl Creatinine (0.6-1.2) mg/dl Est Cr Clr Drug Dosing ml/min Est GFR ( Amer) ml/min Est GFR (Non-Af Amer) ml/min BUN/Creatinine Ratio (10-20) Glucose (70-99(Fasting)) mg/dl POC Glucose 87 (70-99) mg/dl Calcium (8.5-10.1) mg/dl Phosphorus (2.5-4.9) mg/dl Magnesium (1.7-2.4) mg/dl Total Bilirubin (0.2-1.0) mg/dl AST (13-39) U/L ALT (7-52) U/L Alkaline Phosphatase (34-104) U/L Total Creatine Kinase (26-192) U/L Total Protein (6.0-8.3) gm/dl Albumin (3.4-5.0) gm/dl Globulin (2.5-4.0) gm/dl Albumin/Globulin Ratio (0.9-2) HCG, Qual (Negative) Urine Color Urine Appearance (Clear) Urine pH (4.5-7.5) Ur Specific [place] (1.000-1.030) Urine Protein (Negative) Urine Glucose (UA) (Negative) Urine Ketones (Negative) Urine Blood (Negative) Urine Nitrite (Negative) Urine Bilirubin (Negative) Urine Urobilinogen (Negative) Ur Leukocyte Esterase (Negative) Nasal Screen MRSA (PCR) Negative (Negative) Salicylates (3.0-30) mg/dl Urine Opiates Screen (Neg) Ur Methadone, Qual (Neg) Acetaminophen (10-30) ug/ml Urine Barbiturates (Neg) Ur Phencyclidine (PCP) (Neg) U Amphetamin/Meth Scrn (Neg) Urine MDEA MDMA (Ecstasy) Screen (Neg) MDMA Urine MDMA U OH-Alprazolam Confrm U Benzodiazepines Scrn (Neg) 7-Amino Clonazepam Ur Nordiazepam Confirm U OH-ethylflurazepam U Lorazepam Cnf GC/MS U Oxazepam Confm GC/MS Ur Temazepam Confirm U OH-Triazolam Confirm U OH-Midazolam Confirm Ur Cocaine Metabolite (Neg) U Marijuana (THC) Screen (Neg) U Marijuana THC Carboxy Drug Screen Comment Ethyl Alcohol mg/dL (<10.0) mg/dl SARS-CoV-2, RNA, NAAT (NEGATIVE) 05/01/22 05/01/22 05/01/22 Range/Units 14:39 14:39 14:39 WBC (4.8-10.8) K/ul RBC (3.93-5.22) M/uL Hgb (12.0-16.0) g/dl Hct (34.1-44.9) % MCV (80.0-100.0) fL MCH (25.0-34.0) pg MCHC (32.0-36.0) g/dL RDW Std Deviation (36.4-46.3) fL RDW Coeff of Carolyn (11.5-14.5) % Plt Count (130-400) K/uL MPV (9.4-12.3) fL Immature Gran % (Auto) % Neut % (Auto) % Lymph % (Auto) % Cannon % (Auto) % Eos % (Auto) % Baso % (Auto) % Neut # (Auto) (1.4-6.5) K/uL Lymph # (Auto) (1.2-3.4) K/uL Cannon # (Auto) (0.24-0.82) K/uL Eos # (Auto) (0-0.50) K/uL Baso # (Auto) (0-0.2) K/uL Immature Gran # (Auto) (0.00-0.02) K/uL PT (9.0-12.0) Seconds INR (0.9-1.1) Sodium (136-145) mmol/L Potassium (3.5-5.1) mmol/L Chloride (98-107) mmol/L Carbon Dioxide (21-32) mmol/L Anion Gap (3-11) BUN (6-23) mg/dl Creatinine (0.6-1.2) mg/dl Est Cr Clr Drug Dosing ml/min Est GFR ( Amer) ml/min Est GFR (Non-Af Amer) ml/min BUN/Creatinine Ratio (10-20) Glucose (70-99(Fasting)) mg/dl POC Glucose (70-99) mg/dl Calcium (8.5-10.1) mg/dl Phosphorus (2.5-4.9) mg/dl Magnesium (1.7-2.4) mg/dl Total Bilirubin (0.2-1.0) mg/dl AST (13-39) U/L ALT (7-52) U/L Alkaline Phosphatase (34-104) U/L Total Creatine Kinase (26-192) U/L Total Protein (6.0-8.3) gm/dl Albumin (3.4-5.0) gm/dl Globulin (2.5-4.0) gm/dl Albumin/Globulin Ratio (0.9-2) HCG, Qual (Negative) Urine Color Yellow Urine Appearance Clear (Clear) Urine pH 6.0 (4.5-7.5) Ur Specific [place] 1.014 (1.000-1.030) Urine Protein Negative (Negative) Urine Glucose (UA) Negative (Negative) Urine Ketones Negative (Negative) Urine Blood Negative (Negative) Urine Nitrite Negative (Negative) Urine Bilirubin Negative (Negative) Urine Urobilinogen Negative (Negative) Ur Leukocyte Esterase Negative (Negative) Nasal Screen MRSA (PCR) (Negative) Salicylates (3.0-30) mg/dl Urine Opiates Screen Neg (Neg) Ur Methadone, Qual Neg (Neg) Acetaminophen (10-30) ug/ml Urine Barbiturates Neg (Neg) Ur Phencyclidine (PCP) Neg (Neg) U Amphetamin/Meth Scrn Neg (Neg) Urine MDEA Pending MDMA (Ecstasy) Screen Pos H (Neg) MDMA Pending Urine MDMA Pending U OH-Alprazolam Confrm Pending U Benzodiazepines Scrn Pos H (Neg) 7-Amino Clonazepam Pending Ur Nordiazepam Confirm Pending U OH-ethylflurazepam Pending U Lorazepam Cnf GC/MS Pending U Oxazepam Confm GC/MS Pending Ur Temazepam Confirm Pending U OH-Triazolam Confirm Pending U OH-Midazolam Confirm Pending Ur Cocaine Metabolite Neg (Neg) U Marijuana (THC) Screen Pos H (Neg) U Marijuana THC Carboxy Pending Drug Screen Comment Pending Ethyl Alcohol mg/dL (<10.0) mg/dl SARS-CoV-2, RNA, NAAT (NEGATIVE) 05/01/22 05/01/22 05/01/22 Range/Units 12:45 12:45 12:45 WBC (4.8-10.8) K/ul RBC (3.93-5.22) M/uL Hgb (12.0-16.0) g/dl Hct (34.1-44.9) % MCV (80.0-100.0) fL MCH (25.0-34.0) pg MCHC (32.0-36.0) g/dL RDW Std Deviation (36.4-46.3) fL RDW Coeff of Carolyn (11.5-14.5) % Plt Count (130-400) K/uL MPV (9.4-12.3) fL Immature Gran % (Auto) % Neut % (Auto) % Lymph % (Auto) % Cannon % (Auto) % Eos % (Auto) % Baso % (Auto) % Neut # (Auto) (1.4-6.5) K/uL Lymph # (Auto) (1.2-3.4) K/uL Cannon # (Auto) (0.24-0.82) K/uL Eos # (Auto) (0-0.50) K/uL Baso # (Auto) (0-0.2) K/uL Immature Gran # (Auto) (0.00-0.02) K/uL PT (9.0-12.0) Seconds INR (0.9-1.1) Sodium (136-145) mmol/L Potassium (3.5-5.1) mmol/L Chloride (98-107) mmol/L Carbon Dioxide (21-32) mmol/L Anion Gap (3-11) BUN (6-23) mg/dl Creatinine (0.6-1.2) mg/dl Est Cr Clr Drug Dosing ml/min Est GFR ( Amer) ml/min Est GFR (Non-Af Amer) ml/min BUN/Creatinine Ratio (10-20) Glucose (70-99(Fasting)) mg/dl POC Glucose (70-99) mg/dl Calcium (8.5-10.1) mg/dl Phosphorus (2.5-4.9) mg/dl Magnesium (1.7-2.4) mg/dl Total Bilirubin (0.2-1.0) mg/dl AST (13-39) U/L ALT (7-52) U/L Alkaline Phosphatase (34-104) U/L Total Creatine Kinase (26-192) U/L Total Protein (6.0-8.3) gm/dl Albumin (3.4-5.0) gm/dl Globulin (2.5-4.0) gm/dl Albumin/Globulin Ratio (0.9-2) HCG, Qual Negative (Negative) Urine Color Urine Appearance (Clear) Urine pH (4.5-7.5) Ur Specific [place] (1.000-1.030) Urine Protein (Negative) Urine Glucose (UA) (Negative) Urine Ketones (Negative) Urine Blood (Negative) Urine Nitrite (Negative) Urine Bilirubin (Negative) Urine Urobilinogen (Negative) Ur Leukocyte Esterase (Negative) Nasal Screen MRSA (PCR) (Negative) Salicylates (3.0-30) mg/dl Urine Opiates Screen (Neg) Ur Methadone, Qual (Neg) Acetaminophen (10-30) ug/ml Urine Barbiturates (Neg) Ur Phencyclidine (PCP) (Neg) U Amphetamin/Meth Scrn (Neg) Urine MDEA MDMA (Ecstasy) Screen (Neg) MDMA Urine MDMA U OH-Alprazolam Confrm U Benzodiazepines Scrn (Neg) 7-Amino Clonazepam Ur Nordiazepam Confirm U OH-ethylflurazepam U Lorazepam Cnf GC/MS U Oxazepam Confm GC/MS Ur Temazepam Confirm U OH-Triazolam Confirm U OH-Midazolam Confirm Ur Cocaine Metabolite (Neg) U Marijuana (THC) Screen (Neg) U Marijuana THC Carboxy Drug Screen Comment Ethyl Alcohol mg/dL < 10.0 (<10.0) mg/dl SARS-CoV-2, RNA, NAAT NEGATIVE (NEGATIVE) 05/01/22 05/01/22 05/01/22 Range/Units 12:45 12:45 12:45 WBC (4.8-10.8) K/ul RBC (3.93-5.22) M/uL Hgb (12.0-16.0) g/dl Hct (34.1-44.9) % MCV (80.0-100.0) fL MCH (25.0-34.0) pg MCHC (32.0-36.0) g/dL RDW Std Deviation (36.4-46.3) fL RDW Coeff of Carolyn (11.5-14.5) % Plt Count (130-400) K/uL MPV (9.4-12.3) fL Immature Gran % (Auto) % Neut % (Auto) % Lymph % (Auto) % Cannon % (Auto) % Eos % (Auto) % Baso % (Auto) % Neut # (Auto) (1.4-6.5) K/uL Lymph # (Auto) (1.2-3.4) K/uL Cannon # (Auto) (0.24-0.82) K/uL Eos # (Auto) (0-0.50) K/uL Baso # (Auto) (0-0.2) K/uL Immature Gran # (Auto) (0.00-0.02) K/uL PT 10.6 (9.0-12.0) Seconds INR 1.0 (0.9-1.1) Sodium 142 (136-145) mmol/L Potassium 4.1 (3.5-5.1) mmol/L Chloride 109 H (98-107) mmol/L Carbon Dioxide 26 (21-32) mmol/L Anion Gap 7 (3-11) BUN 10 (6-23) mg/dl Creatinine 0.92 (0.6-1.2) mg/dl Est Cr Clr Drug Dosing 69.1 ml/min Est GFR ( Amer) 89.0 ml/min Est GFR (Non-Af Amer) 76.8 ml/min BUN/Creatinine Ratio 10.9 (10-20) Glucose 84 (70-99(Fasting)) mg/dl POC Glucose (70-99) mg/dl Calcium 9.0 (8.5-10.1) mg/dl Phosphorus (2.5-4.9) mg/dl Magnesium 2.3 (1.7-2.4) mg/dl Total Bilirubin 0.7 (0.2-1.0) mg/dl AST 12 L (13-39) U/L ALT 8 (7-52) U/L Alkaline Phosphatase 64 (34-104) U/L Total Creatine Kinase 129 (26-192) U/L Total Protein 6.8 (6.0-8.3) gm/dl Albumin 4.0 (3.4-5.0) gm/dl Globulin 2.8 (2.5-4.0) gm/dl Albumin/Globulin Ratio 1.4 (0.9-2) HCG, Qual (Negative) Urine Color Urine Appearance (Clear) Urine pH (4.5-7.5) Ur Specific [place] (1.000-1.030) Urine Protein (Negative) Urine Glucose (UA) (Negative) Urine Ketones (Negative) Urine Blood (Negative) Urine Nitrite (Negative) Urine Bilirubin (Negative) Urine Urobilinogen (Negative) Ur Leukocyte Esterase (Negative) Nasal Screen MRSA (PCR) (Negative) Salicylates < 3.0 L (3.0-30) mg/dl Urine Opiates Screen (Neg) Ur Methadone, Qual (Neg) Acetaminophen < 3 L (10-30) ug/ml Urine Barbiturates (Neg) Ur Phencyclidine (PCP) (Neg) U Amphetamin/Meth Scrn (Neg) Urine MDEA MDMA (Ecstasy) Screen (Neg) MDMA Urine MDMA U OH-Alprazolam Confrm U Benzodiazepines Scrn (Neg) 7-Amino Clonazepam Ur Nordiazepam Confirm U OH-ethylflurazepam U Lorazepam Cnf GC/MS U Oxazepam Confm GC/MS Ur Temazepam Confirm U OH-Triazolam Confirm U OH-Midazolam Confirm Ur Cocaine Metabolite (Neg) U Marijuana (THC) Screen (Neg) U Marijuana THC Carboxy Drug Screen Comment Ethyl Alcohol mg/dL (<10.0) mg/dl SARS-CoV-2, RNA, NAAT (NEGATIVE) 05/01/22 Range/Units 12:45 WBC 8.04 (4.8-10.8) K/ul RBC 4.60 (3.93-5.22) M/uL Hgb 14.6 (12.0-16.0) g/dl Hct 42.6 (34.1-44.9) % MCV 92.6 (80.0-100.0) fL MCH 31.7 (25.0-34.0) pg MCHC 34.3 (32.0-36.0) g/dL RDW Std Deviation 42.3 (36.4-46.3) fL RDW Coeff of Carolyn 12.5 (11.5-14.5) % Plt Count 182 (130-400) K/uL MPV 11.1 (9.4-12.3) fL Immature Gran % (Auto) 0.2 % Neut % (Auto) 85.9 % Lymph % (Auto) 8.2 % Cannon % (Auto) 5.1 % Eos % (Auto) 0.2 % Baso % (Auto) 0.4 % Neut # (Auto) 6.90 H (1.4-6.5) K/uL Lymph # (Auto) 0.66 L (1.2-3.4) K/uL Cannon # (Auto) 0.41 (0.24-0.82) K/uL Eos # (Auto) 0.02 (0-0.50) K/uL Baso # (Auto) 0.03 (0-0.2) K/uL Immature Gran # (Auto) 0.02 (0.00-0.02) K/uL PT (9.0-12.0) Seconds INR (0.9-1.1) Sodium (136-145) mmol/L Potassium (3.5-5.1) mmol/L Chloride (98-107) mmol/L Carbon Dioxide (21-32) mmol/L Anion Gap (3-11) BUN (6-23) mg/dl Creatinine (0.6-1.2) mg/dl Est Cr Clr Drug Dosing ml/min Est GFR ( Amer) ml/min Est GFR (Non-Af Amer) ml/min BUN/Creatinine Ratio (10-20) Glucose (70-99(Fasting)) mg/dl POC Glucose (70-99) mg/dl Calcium (8.5-10.1) mg/dl Phosphorus (2.5-4.9) mg/dl Magnesium (1.7-2.4) mg/dl Total Bilirubin (0.2-1.0) mg/dl AST (13-39) U/L ALT (7-52) U/L Alkaline Phosphatase (34-104) U/L Total Creatine Kinase (26-192) U/L Total Protein (6.0-8.3) gm/dl Albumin (3.4-5.0) gm/dl Globulin (2.5-4.0) gm/dl Albumin/Globulin Ratio (0.9-2) HCG, Qual (Negative) Urine Color Urine Appearance (Clear) Urine pH (4.5-7.5) Ur Specific [place] (1.000-1.030) Urine Protein (Negative) Urine Glucose (UA) (Negative) Urine Ketones (Negative) Urine Blood (Negative) Urine Nitrite (Negative) Urine Bilirubin (Negative) Urine Urobilinogen (Negative) Ur Leukocyte Esterase (Negative) Nasal Screen MRSA (PCR) (Negative) Salicylates (3.0-30) mg/dl Urine Opiates Screen (Neg) Ur Methadone, Qual (Neg) Acetaminophen (10-30) ug/ml Urine Barbiturates (Neg) Ur Phencyclidine (PCP) (Neg) U Amphetamin/Meth Scrn (Neg) Urine MDEA MDMA (Ecstasy) Screen (Neg) MDMA Urine MDMA U OH-Alprazolam Confrm U Benzodiazepines Scrn (Neg) 7-Amino Clonazepam Ur Nordiazepam Confirm U OH-ethylflurazepam U Lorazepam Cnf GC/MS U Oxazepam Confm GC/MS Ur Temazepam Confirm U OH-Triazolam Confirm U OH-Midazolam Confirm Ur Cocaine Metabolite (Neg) U Marijuana (THC) Screen (Neg) U Marijuana THC Carboxy Drug Screen Comment Ethyl Alcohol mg/dL (<10.0) mg/dl SARS-CoV-2, RNA, NAAT (NEGATIVE) Diagnostic Findings no QTc issues on EKG Coding Level of Care Code 45716 [facility] Intl Hosp Care Lvl 2 Diagnoses Major depression F32.9 Drug overdose T50.904A Encounter type: initial encounter Injury intent: undetermined intent Anxiety F41.9
--- NOTE | 2022-05-02 22:09 | Hospitalist Progress Note ---
Date of Service May 02, 2022 Assessment & Plan (1) Drug overdose: Plan: -Admit to ICU -At this time the patient is currently afebrile, hemodynamically stable and stable on the ventilator -Per the history, it appears that the patient took both xanax and trazadone, unclear if she did take buspar as well -Intubated to ensure her airway is protected extubated overnight, remains extubated on 05/02 will monitor and likely transfer out of the ICU. will consult psychiatry. (2) Anxiety: Plan: -Will continue buspar perhaps tomorrow, await psych input. possibly continue xanax and trazodone but would be cautious (3) HTN (hypertension): Plan: -Hold lisinopril for now as she is hemodynamically stable Admission and Anticipated Discharge Date Admission Date: May 01, 2022 Subjective 41 yo female tired. Reports no new complaints. Review of Systems Review of Systems: All systems reviewed & are unremarkable except as noted in HPI & below Physical Exam Physical Exam: General: In no acute distress, stated age, well-nourished, good hygiene, HEENT: Normocephalic, atraumatic, no scleral icterus, pupils around round, symmetrical, and reactive to light, moist mucus membranes, trachea midline, no thyromegaly Chest/Pulm: extubated,No respiratory distress, symmetrical chest expansion, clear breath sounds throughout Cardiac: Normal rate, regular rhythm, no murmurs noted Abdomen: Negative for ascites and bruising, normoactive bowel sounds, soft, non- tender to palpation throughout : Patient with mercedes catheter in place, draining clear yellow urine Musculoskeletal: Symmetrical and without signs of acute trauma, upper and lower extremities with full ROM, no atrophy, spasticity, or flaccidity Extremities: Radial, dorsalis pedis, and posterior tibial pulses are intact and symmetrical, no edema noted in the BL LE's Skin: Warm, dry, no rashes , lesions, or scars noted Neuro: Alert and oriented to person, place, month, year, and president, no focal defects, CN II-XII tested and intact, finger to nose test negative, no tremors noted Psych: No acute distress, calm and cooperative during the exam Results & Data Results & Data ([facility]) Vital Signs (Past 12 Hours) Vital Signs Temp Pulse Pulse Resp BP BP Pulse Ox 05/02/22 16:31 36.7 C 88 18 99/65 L 96 05/02/22 15:00 110 H 32 H 96 05/02/22 14:00 96 H 28 H 96 05/02/22 13:01 111 H 22 99 05/02/22 13:01 96/63 L 05/02/22 13:00 103 H 24 98 05/02/22 12:00 84 17 94 05/02/22 12:00 105/71 05/02/22 11:00 78 33 H 98 05/02/22 10:35 83/61 L 05/02/22 10:35 76 22 97 O2 Del Method 05/02/22 16:31 Room Air 05/02/22 15:00 05/02/22 14:00 05/02/22 13:01 05/02/22 13:01 05/02/22 13:00 05/02/22 12:00 05/02/22 12:00 05/02/22 11:00 05/02/22 10:35 05/02/22 10:35 PG Care Time/CCT Total # of Minutes Spent Total Time Spent with Patient: Total time spent is greater than 50% in coordination of care (as documented) at patient's floor/unit and/or counseling patient: Coding Level of Care Code 99942 Subseq Hosp Care Lvl 2 Diagnoses Drug overdose T50.904A Encounter type: initial encounter Injury intent: undetermined intent Anxiety F41.9 HTN (hypertension) I10 (1) Drug overdose Encounter type: initial encounter Injury intent: undetermined intent Qualified Code(s): T50.904A - Poisoning by unspecified drugs, medicaments and biological substances, undetermined, initial encounter
--- NOTE | 2022-05-02 22:31 | Electrocardiogram Report ---
Test Reason : Blood Pressure : / mmHG Vent. Rate : 070 BPM Atrial Rate : 070 BPM P-R Int : 124 ms QRS Dur : 078 ms QT Int : 436 ms P-R-T Axes : 066 063 021 degrees QTc Int : 470 ms Sinus rhythm Nonspecific T wave abnormality Abnormal ECG No previous ECGs available Confirmed by Kurtis Navarrete ([id number]) on 05/02/2022 10:30:57 PM Referred By: Confirmed By:Kurtis Navarrete
[2022-05-03] MEDS ORDERED: COUGH DROP (SUGAR FREE) LOZ 24 LOZ/1 BOX BUCCAL ONE (01:47)
[2022-05-03] MEDS: BENZONATATE 100 MG CAPSULE PO PRN ×3 (02:29→21:18)
--- NOTE | 2022-05-03 04:58 | Electrocardiogram Report ---
Test Reason : Blood Pressure : / mmHG Vent. Rate : 093 BPM Atrial Rate : 093 BPM P-R Int : 114 ms QRS Dur : 072 ms QT Int : 320 ms P-R-T Axes : 079 065 005 degrees QTc Int : 397 ms Normal sinus rhythm Nonspecific T wave abnormality When compared with ECG of 01-MAY-2022 12:39, QT has shortened Confirmed by Kurtis Navarrete ([id number]) on 05/03/2022 4:58:34 AM Referred By: REFERRED SELF Confirmed By:Kurtis Navarrete
--- NOTE | 2022-05-03 05:23 | Electrocardiogram Report ---
Test Reason : Blood Pressure : / mmHG Vent. Rate : 090 BPM Atrial Rate : 090 BPM P-R Int : 110 ms QRS Dur : 072 ms QT Int : 306 ms P-R-T Axes : 072 048 -19 degrees QTc Int : 374 ms Sinus rhythm with short NJ Nonspecific T wave abnormality Abnormal ECG When compared with ECG of 01-MAY-2022 17:25, Nonspecific T wave abnormality is now Present Confirmed by Kurtis Navarrete ([id number]) on 05/03/2022 5:23:26 AM Referred By: REFERRED SELF Confirmed By:Kurtis Navarrete
[2022-05-03] MEDS: ENOXAPARIN INJ 30 MG/0.3 ML SYR SQ SCH (09:12)
[2022-05-03] MEDS: NICOTINE 7 MG/24 HR TDSY TD SCH (09:12)
[2022-05-03] MEDS ORDERED: LORazepam 0.5 MG TAB PO PRN ×2 (16:03→16:05)
[2022-05-03] MEDS ORDERED: ACETAMINOPHEN 325 MG TAB PO ONE (20:38)
--- NOTE | 2022-05-03 22:20 | Hospitalist Progress Note ---
Date of Service May 03, 2022 Assessment & Plan (1) Drug overdose: Plan: -Admit to ICU -At this time the patient is currently afebrile, hemodynamically stable and stable on the ventilator -Per the history, it appears that the patient took both xanax and trazadone, unclear if she did take buspar as well -Intubated to ensure her airway is protected extubated overnight, remains extubated on 05/02 will monitor and likely transfer out of the ICU. will consult psychiatry: appreciate input, placed on loarazepam PRN to limit withdrawal symptoms. (2) Anxiety: Plan: -Will continue buspar perhaps tomorrow, await psych input. possibly continue xanax and trazodone but would be cautious (3) HTN (hypertension): Plan: -Hold lisinopril for now as she is hemodynamically stable Admission and Anticipated Discharge Date Admission Date: May 01, 2022 Subjective 51 yo female reports no new sumptoms. She had an episode of loose stools, and feels drowsy. BUt other than those, she feels better today. Review of Systems Review of Systems: All systems reviewed & are unremarkable except as noted in HPI & below Physical Exam Physical Exam: General: In no acute distress, stated age, well-nourished, good hygiene, HEENT: Normocephalic, atraumatic, no scleral icterus, pupils around round, symmetrical, and reactive to light, moist mucus membranes, trachea midline, no thyromegaly Chest/Pulm: extubated,No respiratory distress, symmetrical chest expansion, clear breath sounds throughout Cardiac: Normal rate, regular rhythm, no murmurs noted Abdomen: Negative for ascites and bruising, normoactive bowel sounds, soft, non- tender to palpation throughout : Patient with mercedes catheter in place, draining clear yellow urine Musculoskeletal: Symmetrical and without signs of acute trauma, upper and lower extremities with full ROM, no atrophy, spasticity, or flaccidity Extremities: Radial, dorsalis pedis, and posterior tibial pulses are intact and symmetrical, no edema noted in the BL LE's Skin: Warm, dry, no rashes , lesions, or scars noted Neuro: Alert and oriented to person, place, month, year, and president, no focal defects, CN II-XII tested and intact, finger to nose test negative, no tremors noted Psych: No acute distress, calm and cooperative during the exam Results & Data Results & Data ([facility]) Vital Signs (Past 12 Hours) Vital Signs Temp Pulse Resp BP Pulse Ox O2 Del Method 05/03/22 15:20 37 C 94 H 18 121/80 94 Room Air PG Care Time/CCT Total # of Minutes Spent Total Time Spent with Patient: Total time spent is greater than 50% in coordination of care (as documented) at patient's floor/unit and/or counseling patient: Coding Level of Care Code 90013 Subseq Hosp Care Lvl 2 Diagnoses Drug overdose T50.904A Encounter type: initial encounter Injury intent: undetermined intent Anxiety F41.9 HTN (hypertension) I10 Time Spent (min) 25 (1) Drug overdose Encounter type: initial encounter Injury intent: undetermined intent Qualified Code(s): T50.904A - Poisoning by unspecified drugs, medicaments and biological substances, undetermined, initial encounter
[2022-05-04 07:21] LABS: Hematocrit (blood only) 38.4 % (34.1-44.9); Hemoglobin 13.3 g/dl (12.0-16.0); Mean Corpuscular Hgb Conc 34.6 g/dL (32.0-36.0); Mean Corpuscular Volume 92.3 fL (80.0-100.0); Platelet Count 134 K/uL (130-400); RDW Standard Deviation 40.5 fL (36.4-46.3); Red Blood Count 4.16 M/uL (3.93-5.22); White Blood Count 7.52 K/ul (4.8-10.8)
[2022-05-04 07:42] LABS: Albumin Level 3.6 gm/dl (3.4-5.0); Bilirubin,Total 0.3 mg/dl (0.2-1.0); Calcium 8.4 mg/dl (8.5-10.1); Creatinine Clr Calc Pharmacy 88.4 ml/min; Est GFR (African American) 121.8 ml/min; Est GFR (Non-African American) 105.1 ml/min; Potassium 3.9 mmol/L (3.5-5.1); Total Protein 6.2 gm/dl (6.0-8.3)
[2022-05-04] MEDS: NICOTINE 7 MG/24 HR TDSY TD SCH (08:27)
[2022-05-04] MEDS: ENOXAPARIN INJ 30 MG/0.3 ML SYR SQ SCH (08:27)
--- NOTE | 2022-05-04 15:49 | Discharge Summary ---
Date of Service May 04, 2022 Admission HPI Per Admitting Provider Radha is a 41 year old female with a PMH significant for anxiety, who presented to the [facility] ED today via EMS for intentional drug overdose. Per EMS and the ED staff, the patient took multiple medications last night at some point. EMS reports the patient sometime either last night or this morning 12 significant amount of trazodone and Xanax. They report they found the patient with an empty bottle of trazodone 50 mg tablets 30 tablets in the bottle unsure how many the patient may have took as the bottle is now empty. The patient also had 2 bottles of Xanax 1 pill 2 days ago for 60 tablets with 14 remaining 1 mg Xanax tablets. Another order bottle of Xanax was also found with the patient but is unclear if any were remaining in this as well. They state in the house they found a bag of some bupropion hidden elsewhere as well but they are unsure if the patient took any. During her time in the ED the patient became progressively more lethargic and there was concern for airway protection, for this reason the patient was intubated by ED staff prior to admission. In the ED the patient was found to be afebrile, hemodynamically stable, and stable on RA prior to intubation. CBC, CMP, PT/INR and UA were all unremarkable. Salicylates, acetaminophen level, and alcohol level were all negative, urine tox screen is pending. She was found to be covid negative. CT of the head and chest xray were negative for acute findings. Prior to admission the patient was started on a Propofol drip and intermittent fentanyl boluses due to increased agitation after intubation. At the time of the exam the patient was resting comfortably in bed in no acute distress. She is currently intubated and on the propofol drip at 35 mcg. History is unable to be obtained from the patient due to her current intubation status. I spoke to her family in the waiting room. They state that the patient has a history of anxiety and HTN, they believe she is normally on Lisinopril. They state that she has been in her normal state of health recently. Her cousin states that she wished her sister a happy anniversary last night on facebook. She has never tried to harm herself or take her life prior to this attempt. They state that her boyfriend found her this morning and then called EMS. Principal Diagnosis Intentional Drug overdose Discharge Exam The patient is awake, alert and oriented 3, well developed and well nourished, normocephalic and atraumatic, lying in bed and in no acute distress. HEENT--PERRL, EOMI, mucous membranes and oropharynx mildly dry Neck--supple. No JVD. No bruits. Thyroid normal, trachea midline, no adenopathy. Heart--normal S1 and S2. No murmurs, rubs or gallops. Lungs--clear bilaterally, no respiratory distress, no accessory muscle use. Abdomen--normal bowel sounds and soft. Mild epigastric and left sided abdominal pain Extremities--no cyanosis or clubbing. No edema. Dermatologic--normal skin turgor, normal color, no abnormal lymph nodes, no rash. Neurologic--cranial nerves II through XII grossly intact. Rheumatologic--normal range of motion. Psychiatric--normal affect. Discharge Data Allergies Allergy/AdvReac Type Severity Reaction Status Date / Time Penicillins AdvReac Intermediate HALLUCINATI Verified 05/01/22 15:31 ONS Consultations 05/01/22 14:53 ED Decision to Admit Stat 05/01/22 16:18 Consult Delphi Programmer Routine 05/02/22 08:54 Consult Psychiatry Routine Ordered Studies 05/01/22 12:47 CT head/brain wo con Stat Hospital Course (1) Drug overdose: -At this time the patient is currently afebrile, hemodynamically stable -Per the history, it appears that the patient took both xanax and trazadone, unclear if she did take buspar as well -Initially Intubated to ensure her airway is protected, but has since been extubated -Currently saturatin well on room air -Evaluated by psych, plan is inpaatient psych -patient is medically stable and medically cleared for inpatient psych (2) Anxiety: -Will continue buspar perhaps tomorrow, await psych input. possibly continue xanax and trazodone but would be cautious (3) HTN (hypertension): -Hold lisinopril for now as she is hemodynamically stable Plan Medically stable and medically clearaed for inpatient psych Total Time Total Time Spent Total Time Spent (In Minutes): 35 Discharge Plan Discharge Items Patient Disposition: Transfer Behavioral Health Fac Reason For Visit: OVERDOSE Discharge Diagnosis: intentional drug overdose Activity: Resume your previous activity Non-emergency contact: Primary Care Provider and Psychiatrist Call non-emergency contact if: you have any medication questions Follow-up/Referrals: PCP,NO [Primary Care Provider] - Diet: Regular Addtl Attending Provider Instructions: please make appointment to follow up with psych Pending Studies at Discharge: No Stand-Alone Forms: My [facility] Medications and DC Order Prescriptions: Continued alprazolam 1 mg tablet 1 mg PO BID PRN (Reason: Anxiety) Rx Instructions: per [facility], can not confirm with patient trazodone 50 mg tablet 50 mg PO HS PRN (Reason: Sleep) Rx Instructions: Per [facility] pharmacy, could not cofirm with patient buspirone 30 mg tablet 30 mg PO BID Rx Instructions: per [facility], could not confirm with patient. Last filled in february 2022 for 30 day supply. Discharge Orders: Discharge Order (Routine); Ordered 05/04/22 Ordered By: Crow Pinedo Admission Data Admit Date/Time: 05/01/22 15:10 Attending Provider: Crow Pinedo Admit Provider: Monae Apple Primary Care Provider: PCP,NO Other Providers: Monae Apple ; Mal Butler ; Ana Paula Murphy ; Renate Egan ; Kenzie Quinonez Coding Level of Care Code D/C DAY MANAGEMENT >30 MINS Diagnoses Drug overdose T50.904A Encounter type: initial encounter Injury intent: undetermined intent Anxiety F41.9 HTN (hypertension) I10 Time Spent (min) 35
[2022-05-06 18:46] LABS: 7-Aminoclonaz, Confirm NEGATIVE ng/mL (<25); Hydro-Alp Ur, GC/MS >2000 ng/mL (<25); Hydroxyethylflurazepam, Conf NEGATIVE ng/mL (<50); Hydroxymidazolam Ur, GC/MS NEGATIVE ng/mL (<50); Hydroxytriazolam NEGATIVE ng/mL (<50); Lorazepam, Ur GC/MS NEGATIVE ng/mL (<50); MDA negative; MDEA negative; MDMA (Ecstasy) Urine, Confirm negative; Marijuana Quant, GCMS Urine 14 ng/mL (<5); Nordiazepam, Confirm NEGATIVE ng/mL (<50); Oxazepam Ur, GC/MS NEGATIVE ng/mL (<50); Temazepam, Confirm NEGATIVE ng/mL (<50)
--- NOTE | 2022-05-12 14:45 | Coding Query ---
To promote full compliance with coding requirements relating to patient care, provider participation is requested in all cases of marine services technician uncertainty. Please assist us with the question(s) below: Coding Question(s): The diagnosis below was documented in the ER, then subsequently fell off all further documentation. Please indicate if it is still a possible diagnosis or ruled out. Physician's Response(s): RESPIRATORY FAILURE ( ) Diagnosed and POA. Please specify further below: ( ) Most likely Acute Respiratory Failure ( ) Most likely Chronic Respiratory Failure ( ) Most likely other Respiratory Failure. Please Specify ( x ) Diagnosed and not POA. Please specify further below: ( x ) Most likely Acute Respiratory Failure ( ) Most likely Chronic Respiratory Failure ( ) Most likely other Respiratory Failure. Please Specify ( ) Ruled out ( ) Other (please specify) MTDD
== END 2022-05-04 17:04 | DRG 917 ==
LOC: ED 12:31 → 1E 15:10 → SUATTDRO 15:10 → 1E 15:42 → 3E 05-02 16:12
DX: F17.210 Nicotine dependence, cigarettes, uncomplicated; Z20.822 Contact with and (suspected) exposure to COVID-19; F41.9 Anxiety disorder, unspecified; Z79.899 Other long term (current) drug therapy; Z88.0 Allergy status to penicillin; T43.212A Poisoning by selective serotonin and norepinephrine reuptake inhibitors, intentional self-harm, initial encounter; R09.02 Hypoxemia; R53.83 Other fatigue; F32.9 Major depressive disorder, single episode, unspecified; J96.01 Acute respiratory failure with hypoxia; I10 Essential (primary) hypertension; T42.4X2A Poisoning by benzodiazepines, intentional self-harm, initial encounter

== ENCOUNTER 2022-05-04 11:39 | Inpatient (IN) ==
[2022-05-04] MEDS ORDERED: MAGNESIUM HYDROXIDE SUSP 30 ML UDC PO PRN (14:24)
[2022-05-04] MEDS ORDERED: BISMUTH SUBSALICYLATE LIQD 236 ML PO PRN (14:24)
[2022-05-04] MEDS ORDERED: SODIUM CHLORIDE 0.65% NA SOLN 45 ML (OCEAN) PRN (14:24)
[2022-05-04] MEDS ORDERED: hydrOXYzine HCl 25 MG TAB PO PRN ×2 (14:24)
[2022-05-04] MEDS ORDERED: ALUMINUM/MAGNESIUM SUSP 30 ML UDC PO PRN (14:24)
[2022-05-04] MEDS ORDERED: COUGH DROP (SUGAR FREE) LOZ 24 LOZ/1 BOX BUCCAL PRN (17:21)
[2022-05-04] MEDS ORDERED: FLUARIX QUADRIVALENT 0.5 ML SYR IM ONE (18:58)
[2022-05-04] MEDS: BENZONATATE 100 MG CAPSULE PO SCH (21:12)
[2022-05-05] MEDS: BENZONATATE 100 MG CAPSULE PO SCH ×3 (08:56→21:51)
[2022-05-05] MEDS ORDERED: ALBUTEROL HFA 8 GM INHALER INH ONE (09:43)
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
--- NOTE | 2022-05-05 14:04 | XRay Report ---
XR chest 1V portable HISTORY: 41 years-old Female cough s/p intubation, r/o aspiration acute cough COMPARISON: Chest radiograph 05/02/2022 TECHNIQUE: AP view of the chest FINDINGS: Cardiomediastinal and hilar silhouettes are within normal limits. No pneumothorax, pleural effusion, airspace consolidation or overt pulmonary edema. Bones of the chest appear grossly intact. IMPRESSION: No acute process. ACT 112: Negative or not required by law. The above report was generated using voice recognition software. It may contain grammatical, syntax o r spelling errors. Electronically signed by: Jake Lao M.D. 05/05/2022 2:02 PM
[2022-05-05] MEDS: ESCITALOPRAM OXALATE 10 MG TAB PO SCH (14:44)
[2022-05-05] MEDS: GABAPENTIN 100 MG CAP PO SCH ×2 (14:45→17:35)
[2022-05-05] MEDS ORDERED: GABAPENTIN 300 MG CAP PO SCH (22:00)
[2022-05-05] MEDS: ALBUTEROL HFA 8 GM INHALER INH PRN (22:16)
[2022-05-05] MEDS: ACETAMINOPHEN 325 MG TAB PO PRN (23:37)
[2022-05-06] MEDS: GABAPENTIN 100 MG CAP PO SCH (08:30)
[2022-05-06] MEDS: ESCITALOPRAM OXALATE 10 MG TAB PO SCH (08:31)
[2022-05-06] MEDS: BENZONATATE 100 MG CAPSULE PO SCH ×3 (08:31→21:28)
--- NOTE | 2022-05-06 13:14 | Psychiatric Progress Note ---
Date of Service May 06, 2022 Impression / Recommendations Impression 41 yo female s/p significant Xanax and trazodone OD that required intubation and several days on med floor prior to admission last pm. Currently experiencing subjective benzo withdrawal and ongoing cough/laryngospasm. Declines steroids given potential side effects. Tessalon perles moderately effective. 05/06/22: cough improved significantly, ongoing anxiety/Xanax withdrawal. (1) Major depression: (2) Anxiety: (3) Drug overdose: (4) HTN (hypertension): Plan 05/06/22: titrate Neurontin for ongoing benzo withdrawal/anxiety/sleep disturbance (though Vistaril scheduled for the latter). 05/05/22: The patient was admitted to the [facility] ([facility]) on q15 min checks (behavioral with suicide precautions) for safety. The patient will participate in group, recreational, and milieu therapies and will be offered additional individual and family sessions as clinically appropriate. Risks/benefits/alternatives reviewed re: Neurontin to assist with transition off of benzos as helpful off label for anxiety and sleep. Patient desires restart previous meds, reviewed would be willing to address Lexapro here but cannot advise restart trazodone or Xanax this close to OD. Albuterol MDI. Consider CXR. currently cough is non productive and afebrile. Inventory Assets Strengths: open, love of son Needs: improving coping skills, outpatient therapy Suicide Risk Level Suicide Risk Level: Moderate (q15 min suicide checks) Risk Factors Assessment : Yes Do You Have Access To A Gun?: No Mental Health Diagnoses: Yes Substance Use Disorders: No Previous Attempt: No Previous Psychiatric Hospitalization: No Protective Factors Assessment : No Responsible for Young Children: Yes Employed: Yes Supportive Family: Yes Interval History Identifying Information KACEY GRAHAM is a 41-year-old F who currently lives in [place], originally admit to [facility] on 05/01/22 s/p OD and was discharged to on 05/04/22 14:26 on a 201 voluntary commitment for ongoing treatment. Chief Complaint "I feel really anxious at times, fingers go numb, restless." Review of Systems Sleep Information Total Hours of Sleep: 4.5 Sleep Comments: vistaril 50 mg po prn @ 2341 Tylenol 650 mg prn pr @ 2337 Meal Information Percent Meal Consumed - Breakfast: 70 Percent Meal Consumed - Lunch: 75 Percent Meal Consumed - Dinner: 75 Subjective Subjective Patient was seen & assessed and interval progress reviewed with treatment team. 10/17 last pm and "unsure" referring to confusion about what to do with her relationship. She was restless and hot at hs and did some walking but did benefit from prn Vistaril. Physical Exam Psychiatric Orientation: alert and oriented x 3 Apperance: appropriately dressed and appropriately groomed Eye Contact: good eye contact Motor Behavior: no abnormal motor movements Speech: normal rate/rhythm/volume of speech Affect: + depressed affect Mood: + depressed mood Thought Process: goal directed thought process Thought Content: reality based without delusions Suicidal Thoughts: denies suicidal thoughts Homicidal Thoughts: denies homicidal thoughts Hallucinations: no auditory hallucinations and no visual hallucinations Cognition: attention grossly intact and language grossly intact Estimated Intelligence: consistent with education level Insight: + limited insight Judgement: + limited judgement Vital Signs (Past 24 Hours) Last Vital Signs Temp 36.5 C 05/06/22 06:42 Pulse 83 05/06/22 06:46 Resp 18 05/06/22 06:42 BP 110/72 05/06/22 06:46 Pulse Ox 98 05/05/22 22:16 O2 Del Method 05/05/22 22:16 Results & Data ([facility]) Current Inpatient Medications Current Inpatient Medications: Current Inpatient Medications Acetaminophen (Acetaminophen 325 Mg Tab) 650 mg PO Q4H PRN PRN Reason: Headache or Minor Fever Stop: 06/03/22 14:23 Last Admin: 05/05/22 23:37 Dose: 650 mg Al Hydrox/Mg Hydrox/Simethicone (Aluminum/Magnesium Susp 30 Ml Udc) 30 ml PO Q4H PRN PRN Reason: GI Upset Stop: 06/03/22 14:23 Albuterol (Albuterol Hfa 8 Gm Inhaler) 2 puffs INH Q4R PRN PRN Reason: Cough Stop: 06/04/22 09:42 Last Admin: 05/05/22 22:16 Dose: 2 puffs Benzonatate (Benzonatate 100 Mg Capsule) 100 mg PO TID FARZAD Stop: 06/03/22 20:59 Last Admin: 05/06/22 08:31 Dose: 100 mg Bismuth Subsalicylate (Bismuth Subsalicylate Liqd 236 Ml) 15 ml PO PRN PRN PRN Reason: Loose Stool Stop: 06/03/22 14:23 Escitalopram Oxalate (Escitalopram Oxalate 10 Mg Tab) 5 mg PO QAM FARZAD Stop: 06/04/22 12:44 Last Admin: 05/06/22 08:31 Dose: 5 mg Gabapentin (Gabapentin 100 Mg Cap) 100 mg PO BIDM FARZAD Stop: 06/04/22 12:44 Last Admin: 05/06/22 08:30 Dose: 100 mg Gabapentin (Gabapentin 300 Mg Cap) 300 mg PO HS FARZAD Stop: 06/04/22 21:59 Last Admin: 05/05/22 21:51 Dose: 300 mg Hydroxyzine HCl (Hydroxyzine Hcl 25 Mg Tab) 50 mg PO HSZ PRN PRN Reason: Insomnia Stop: 06/03/22 14:23 Last Admin: 05/05/22 23:41 Dose: 50 mg Hydroxyzine HCl (Hydroxyzine Hcl 25 Mg Tab) 25 mg PO Q4H PRN PRN Reason: Anxiety Stop: 06/03/22 14:23 Magnesium Hydroxide (Magnesium Hydroxide Susp 30 Ml Udc) 30 ml PO DAILY PRN PRN Reason: Constipation Stop: 06/03/22 14:23 Menthol (Cough Drop (Sugar Free) Bridgett 24 Bridgett/1 Box) 1 bridgett BUCCAL Q1H PRN PRN Reason: Sore Throat Stop: 06/03/22 17:20 Sodium Chloride (Sodium Chloride 0.65% Na Soln 45 Ml ([place])) 1 - 2 sprays NA PRN PRN PRN Reason: Nasal Dryness/Congestion Stop: 06/03/22 14:23 Mental Health & Subst Abuse Tx Psychiatrist Name of Psychiatrist: [facility] Date of Appointment with Psychiatrist: 05/11/22 Time of Appointment with Psychiatrist: 11:40 AM Psychiatric Appointment Comment: [address] [facility], [place] [address] Therapist Name of Therapist: [facility]'s Therapy Appointment Comment: [address], [address], [place] [address] Post Discharge Appointments Primary Care Physician Name Of Family Doctor: SOCRATES Garcia Primary Care Date of Appointment with PCP: 06/08/22 Time of Appointment with PCP: 7 AM Provider Appointment Comment: [address], [place] [address]; please bring ID/insurance (1) Drug overdose Encounter type: initial encounter Injury intent: undetermined intent Qualified Code(s): T50.904A - Poisoning by unspecified drugs, medicaments and biological substances, undetermined, initial encounter
[2022-05-06] MEDS: GABAPENTIN 300 MG CAP PO SCH ×2 (14:14→21:28)
[2022-05-06] MEDS: hydrOXYzine HCl 25 MG TAB PO SCH (21:28)
[2022-05-06] MEDS: ALBUTEROL HFA 8 GM INHALER INH PRN (21:57)
[2022-05-07] MEDS: ESCITALOPRAM OXALATE 10 MG TAB PO SCH (08:24)
[2022-05-07] MEDS: GABAPENTIN 300 MG CAP PO SCH ×3 (08:24→21:28)
[2022-05-07] MEDS: BENZONATATE 100 MG CAPSULE PO SCH ×3 (08:24→21:28)
--- NOTE | 2022-05-07 14:37 | Psychiatric Progress Note ---
Date of Service May 07, 2022 Impression / Recommendations Impression 41 yo female s/p significant Xanax and trazodone OD that required intubation and several days on med floor prior to admission last pm. Diagnostically consistent with MDD with seasonal component. The patient is deemed unstable and requires psychiatric hospitalization for diagnostic clarification, safety and stabilization, medication management and development of further coping skills. 05/07/22: ongoing depression, anxiety, insomnia. Tolerating higher dose of lexapro and gabapentin. Reviewed interim progress per Dr. Egan's notes. (1) Major depressive disorder, recurrent episode, severe with seasonal pattern: (2) Generalized anxiety disorder with panic attacks: (3) Major depression: (4) Anxiety: (5) Drug overdose: (6) HTN (hypertension): Plan 05/07/22: Escitalopram increased to 10mg qd. 05/06/22: titrate Neurontin for ongoing benzo withdrawal/anxiety/sleep disturbance (though Vistaril scheduled for the latter). 05/05/22: The patient was admitted to the [facility] ([facility] mental health unit) on q15 min checks (behavioral with suicide precautions) for safety. The patient will participate in group, recreational, and milieu therapies and will be offered additional individual and family sessions as clinically appropriate. Risks/benefits/alternatives reviewed re: Neurontin to assist with transition off of benzos as helpful off label for anxiety and sleep. Patient desires restart previous meds, reviewed would be willing to address Lexapro here but cannot advise restart trazodone or Xanax this close to OD. Albuterol MDI. Consider CXR. currently cough is non productive and afebrile. Inventory Assets Strengths: open, love of son Needs: improving coping skills, outpatient therapy Suicide Risk Level Suicide Risk Level: High-Moderate (q15 min suicide checks) (suicide attempt prior to admission with ongoing depression and anxiety, feels safe on unit, agrees to alert staff should SI re-develop or she feel unsafe) Risk Factors Assessment : Yes Do You Have Access To A Gun?: No Mental Health Diagnoses: Yes Substance Use Disorders: No Previous Attempt: No Previous Psychiatric Hospitalization: No Protective Factors Assessment : No Responsible for Young Children: Yes Employed: Yes Supportive Family: Yes Interval History Identifying Information KACEY GRAHAM is a 41-year-old F who currently lives in [place], originally admit to [facility] on 05/01/22 s/p OD and was discharged to on 05/04/22 14:26 on a 201 voluntary commitment for ongoing treatment. Chief Complaint "It always seems to get much worse in the fall". Review of Systems Sleep Information Total Hours of Sleep: 6.75 Sleep Comments: vistaril 50 mg po prn @ 2341 Tylenol 650 mg prn pr @ 2337 Meal Information Percent Meal Consumed - Breakfast: 100 Percent Meal Consumed - Lunch: 100 Percent Meal Consumed - Dinner: 100 Subjective Subjective Patient was seen & assessed and interval progress reviewed with treatment team nursing and social work. Attending groups. Continues to feel depressed. Reviewed that depression has strong seasonal component, tends to worsen in fall in part due to financial stressors in the fall-paying for [employer] gifts, her son's birthday, utility bills higher due to heating needs. She denies any medication side effects. Physical Exam Psychiatric Orientation: alert and oriented x 3 Apperance: appropriately dressed and appropriately groomed Eye Contact: good eye contact Motor Behavior: no abnormal motor movements Speech: normal rate/rhythm/volume of speech Affect: + depressed affect Mood: + depressed mood Thought Process: goal directed thought process Thought Content: reality based without delusions Suicidal Thoughts: denies suicidal thoughts Homicidal Thoughts: denies homicidal thoughts Hallucinations: no auditory hallucinations and no visual hallucinations Cognition: attention grossly intact and language grossly intact Estimated Intelligence: consistent with education level Insight: + limited insight Judgement: + limited judgement Vital Signs (Past 24 Hours) Last Vital Signs Temp 36.9 C 05/07/22 06:46 Pulse 95 H 05/07/22 06:47 Resp 18 05/07/22 06:46 BP 105/71 05/07/22 06:47 Pulse Ox 98 05/06/22 21:57 O2 Del Method 05/05/22 22:16 Results & Data ([facility]) Current Inpatient Medications Current Inpatient Medications: Current Inpatient Medications Acetaminophen (Acetaminophen 325 Mg Tab) 650 mg PO Q4H PRN PRN Reason: Headache or Minor Fever Stop: 06/03/22 14:23 Last Admin: 05/05/22 23:37 Dose: 650 mg Al Hydrox/Mg Hydrox/Simethicone (Aluminum/Magnesium Susp 30 Ml Udc) 30 ml PO Q4H PRN PRN Reason: GI Upset Stop: 06/03/22 14:23 Albuterol (Albuterol Hfa 8 Gm Inhaler) 2 puffs INH Q4R PRN PRN Reason: Cough Stop: 06/04/22 09:42 Last Admin: 05/06/22 21:57 Dose: 2 puffs Benzonatate (Benzonatate 100 Mg Capsule) 100 mg PO TID FARZAD Stop: 06/03/22 20:59 Last Admin: 05/07/22 14:22 Dose: 100 mg Bismuth Subsalicylate (Bismuth Subsalicylate Liqd 236 Ml) 15 ml PO PRN PRN PRN Reason: Loose Stool Stop: 06/03/22 14:23 Escitalopram Oxalate (Escitalopram Oxalate 10 Mg Tab) 10 mg PO QAM FARZAD Stop: 06/06/22 08:59 Last Admin: 05/07/22 08:24 Dose: 10 mg Gabapentin (Gabapentin 300 Mg Cap) 300 mg PO TID FARZAD Stop: 06/05/22 13:59 Last Admin: 05/07/22 14:20 Dose: 300 mg Hydroxyzine HCl (Hydroxyzine Hcl 25 Mg Tab) 50 mg PO HSZ PRN PRN Reason: Insomnia Stop: 06/03/22 14:23 Last Admin: 05/05/22 23:41 Dose: 50 mg Hydroxyzine HCl (Hydroxyzine Hcl 25 Mg Tab) 25 mg PO Q4H PRN PRN Reason: Anxiety Stop: 06/03/22 14:23 Hydroxyzine HCl (Hydroxyzine Hcl 25 Mg Tab) 50 mg PO HS FARZAD Stop: 06/05/22 21:59 Last Admin: 05/06/22 21:28 Dose: 50 mg Magnesium Hydroxide (Magnesium Hydroxide Susp 30 Ml Udc) 30 ml PO DAILY PRN PRN Reason: Constipation Stop: 06/03/22 14:23 Menthol (Cough Drop (Sugar Free) Bridgett 24 Bridgett/1 Box) 1 bridgett BUCCAL Q1H PRN PRN Reason: Sore Throat Stop: 06/03/22 17:20 Sodium Chloride (Sodium Chloride 0.65% Na Soln 45 Ml ([place])) 1 - 2 sprays NA PRN PRN PRN Reason: Nasal Dryness/Congestion Stop: 06/03/22 14:23 Mental Health & Subst Abuse Tx Psychiatrist Name of Psychiatrist: [email or web address]'s Date of Appointment with Psychiatrist: 05/11/22 Time of Appointment with Psychiatrist: 11:40 AM Psychiatric Appointment Comment: [address] [facility], [place] [address] Therapist Name of Therapist: [facility] Therapist's Therapy Appointment Comment: [address], [address], [place] [address] Post Discharge Appointments Primary Care Physician Name Of Family Doctor: SOCRATES Garcia Primary Care Date of Appointment with PCP: 06/08/22 Time of Appointment with PCP: 7 AM Provider Appointment Comment: [address] [address], [place] [address]; please bring ID/insurance (1) Drug overdose Encounter type: initial encounter Injury intent: undetermined intent Dony lified Code(s): T50.904A - Poisoning by unspecified drugs, medicaments and biological substances, undetermined, initial encounter
[2022-05-07] MEDS ORDERED: NICOTINE POLACRILEX 2 MG GUM MT PRN (15:17)
[2022-05-07] MEDS: ACETAMINOPHEN 325 MG TAB PO PRN (15:50)
[2022-05-07] MEDS: hydrOXYzine HCl 25 MG TAB PO SCH (21:28)
[2022-05-07] MEDS: ALBUTEROL HFA 8 GM INHALER INH PRN (21:34)
--- NOTE | 2022-05-08 09:19 | Psychiatric Progress Note ---
Date of Service May 08, 2022 Impression / Recommendations Impression 41 yo female s/p significant Xanax and trazodone OD that required intubation and several days on med floor prior to admission last pm. Diagnostically consistent with MDD with seasonal component. The patient is deemed unstable and requires psychiatric hospitalization for diagnostic clarification, safety and stabilization, medication management and development of further coping skills. MNPR due to cough, increased irritability/reduced tolerance for peers 05/07/22: ongoing depression, anxiety, insomnia but improving slowly. Tolerating medications well. (1) Major depressive disorder, recurrent episode, severe with seasonal pattern: (2) Generalized anxiety disorder with panic attacks: (3) Major depression: (4) Anxiety: (5) Drug overdose: (6) HTN (hypertension): Plan 05/08/22: Continue with current medications and tx plan. 05/07/22: Escitalopram increased to 10mg qd. 05/06/22: titrate Neurontin for ongoing benzo withdrawal/anxiety/sleep di sturbance (though Vistaril scheduled for the latter). 05/05/22: The patient was admitted to the [facility] ([facility] mental health unit) on q15 min checks (behavioral with suicide precautions) for safety. The patient will participate in group, recreational, and milieu therapies and will be offered additional individual and family sessions as clinically appropriate. Risks/benefits/alternatives reviewed re: Neurontin to assist with transition off of benzos as helpful off label for anxiety and sleep. Patient desires restart previous meds, reviewed would be willing to address Lexapro here but cannot advise restart trazodone or Xanax this close to OD. Albuterol MDI. Consider CXR. currently cough is non productive and afebrile. Inventory Assets Strengths: open, love of son Needs: improving coping skills, outpatient therapy Suicide Risk Level Suicide Risk Level: Moderate (q15 min suicide checks) (suicide attempt prior to admission with ongoing depression and anxiety but lessening, feels safe on unit, agrees to alert staff should SI re-develop or she feel unsafe) Risk Factors Assessment : Yes Do You Have Access To A Gun?: No Mental Health Diagnoses: Yes Substance Use Disorders: No Previous Attempt: No Previous Psychiatric Hospitalization: No Protective Factors Assessment : No Responsible for Young Children: Yes Employed: Yes Supportive Family: Yes Interval History Identifying Information KACEY GRAHAM is a 41-year-old F who currently lives in [place], originally admit to [facility] on 05/01/22 s/p OD and was discharged to on 05/04/22 14:26 on a 201 voluntary commitment for ongoing treatment. Chief Complaint "I was irritable this morning". Review of Systems Sleep Information Total Hours of Sleep: 6.75 Sleep Comments: vistaril 50 mg po prn @ 2341 Tylenol 650 mg prn pr @ 2337 Meal Information Percent Meal Consumed - Breakfast: 100 Percent Meal Consumed - Lunch: 100 Percent Meal Consumed - Dinner: 100 Subjective Subjective Patient was seen & assessed and interval progress reviewed with treatment team nursing and social work. Told her boyfriend that she is planning to stay with her sister when she lives the hospital but this lead to him getting upset which caused her to question her decision. She attended groups. More irritable this morning as she wanted to use her phone to play a word game. Feels anxious about needing to get lots in order to move in with her sister. Had family meeting and felt this went well. Denies SI. No side effects. Still with cough. Physical Exam Psychiatric Orientation: alert and oriented x 3 Apperance: appropriately dressed and appropriately groomed Eye Contact: good eye contact Motor Behavior: no abnormal motor movements Speech: normal rate/rhythm/volume of speech Affect: + depressed affect Mood: + depressed mood Thought Process: goal directed thought process Thought Content: reality based without delusions Suicidal Thoughts: denies suicidal thoughts Homicidal Thoughts: denies homicidal thoughts Hallucinations: no auditory hallucinations and no visual hallucinations Cognition: attention grossly intact and language grossly intact Estimated Intelligence: consistent with education level Insight: + fair insight Judgement: + fair judgement Vital Signs (Past 24 Hours) Last Vital Signs Temp 36.6 C 05/08/22 06:46 Pulse 116 H 05/08/22 06:47 Resp 18 05/08/22 06:46 BP 90/66 L 05/08/22 06:47 Pulse Ox 98 05/07/22 21:35 O2 Del Method 05/07/22 21:35 Results & Data ([facility]) Current Inpatient Medications Current Inpatient Medications: Current Inpatient Medications Acetaminophen (Acetaminophen 325 Mg Tab) 650 mg PO Q4H PRN PRN Reason: Headache or Minor Fever Stop: 06/03/22 14:23 Last Admin: 05/07/22 15:50 Dose: 650 mg Al Hydrox/Mg Hydrox/Simethicone (Aluminum/Magnesium Susp 30 Ml Udc) 30 ml PO Q4H PRN PRN Reason: GI Upset Stop: 06/03/22 14:23 Albuterol (Albuterol Hfa 8 Gm Inhaler) 2 puffs INH Q4R PRN PRN Reason: Cough Stop: 06/04/22 09:42 Last Admin: 05/07/22 21:34 Dose: 2 puffs Benzonatate (Benzonatate 100 Mg Capsule) 100 mg PO TID FARZAD Stop: 06/03/22 20:59 Last Admin: 05/07/22 21:28 Dose: 100 mg Bismuth Subsalicylate (Bismuth Subsalicylate Liqd 236 Ml) 15 ml PO PRN PRN PRN Reason: Loose Stool Stop: 06/03/22 14:23 Escitalopram Oxalate (Escitalopram Oxalate 10 Mg Tab) 10 mg PO QAM [facility] Stop: 06/06/22 08:59 Last Admin: 05/07/22 08:24 Dose: 10 mg Gabapentin (Gabapentin 300 Mg Cap) 300 mg PO TID FARZAD Stop: 06/05/22 13:59 Last Admin: 05/07/22 21:28 Dose: 300 mg Hydroxyzine HCl (Hydroxyzine Hcl 25 Mg Tab) 50 mg PO HSZ PRN PRN Reason: Insomnia Stop: 06/03/22 14:23 Last Admin: 05/05/22 23:41 Dose: 50 mg Hydroxyzine HCl (Hydroxyzine Hcl 25 Mg Tab) 25 mg PO Q4H PRN PRN Reason: Anxiety Stop: 06/03/22 14:23 Hydroxyzine HCl (Hydroxyzine Hcl 25 Mg Tab) 50 mg PO HS FARZAD Stop: 06/05/22 21:59 Last Admin: 05/07/22 21:28 Dose: 50 mg Magnesium Hydroxide (Magnesium Hydroxide Susp 30 Ml Udc) 30 ml PO DAILY PRN PRN Reason: Constipation Stop: 06/03/22 14:23 Menthol (Cough Drop (Sugar Free) Bridgett 24 Bridgett/1 Box) 1 bridgett BUCCAL Q1H PRN PRN Reason: Sore Throat Stop: 06/03/22 17:20 Nicotine Polacrilex (Nicotine Polacrilex 2 Mg Gum) 1 piece MT PRN PRN PRN Reason: nicotine cravings Stop: 06/06/22 15:16 Sodium Chloride (Sodium Chloride 0.65% Na Soln 45 Ml ([place])) 1 - 2 sprays NA PRN PRN PRN Reason: Nasal Dryness/Congestion Stop: 06/03/22 14:23 Mental Health & Subst Abuse Tx Psychiatrist Name of Psychiatrist: [facility] Psych[facility]rist's Date of Appointment with Psychiatrist: 05/11/22 Time of Appointment with Psychiatrist: 11:40 AM Psychiatric Appointment Comment: [address] [place] [address] Therapist Name of Therapist: [facility] Therapist's Therapy Appointment Comment: [address], [address], [place] [address] Post Discharge Appointments Primary Care Physician Name Of Family Doctor: OSCRATES Garcia Primary Care Date of Appointment with PCP: 06/08/22 Time of Appointment with PCP: 7 AM Provider Appointment Comment: [address] [address], [place] [address]; please bring ID/insurance (1) Drug overdose Encounter type: initial encounter Injury intent: undetermined intent Qualified Code(s): T50.904A - Poisoning by unspecified drugs, medicaments and biological substances, undetermined, initial encounter
[2022-05-08] MEDS: GABAPENTIN 300 MG CAP PO SCH ×3 (09:30→22:12)
[2022-05-08] MEDS: BENZONATATE 100 MG CAPSULE PO SCH ×3 (09:30→22:12)
[2022-05-08] MEDS: ESCITALOPRAM OXALATE 10 MG TAB PO SCH (09:30)
[2022-05-08] MEDS: NICOTINE 21 MG/24 HR TDSY TD SCH (10:20)
[2022-05-08] MEDS: hydrOXYzine HCl 25 MG TAB PO SCH (22:14)
[2022-05-09] MEDS: ACETAMINOPHEN 325 MG TAB PO PRN (05:56)
[2022-05-09] MEDS: GABAPENTIN 300 MG CAP PO SCH ×3 (08:45→21:03)
[2022-05-09] MEDS: ESCITALOPRAM OXALATE 10 MG TAB PO SCH (08:45)
[2022-05-09] MEDS: BENZONATATE 100 MG CAPSULE PO SCH ×3 (08:45→21:03)
[2022-05-09] MEDS: NICOTINE 21 MG/24 HR TDSY TD SCH (08:46)
--- NOTE | 2022-05-09 09:11 | Psychiatric Progress Note ---
Date of Service May 09, 2022 Impression / Recommendations Impression 41 yo female s/p significant Xanax and trazodone OD that required intubation and several days on med floor prior to admission last pm. Diagnostically consistent with MDD with seasonal component vs BPAD type II with seasonal depression component. The patient is deemed unstable and requires psychiatric hospitalization for diagnostic clarification, safety and stabilization, medication management and development of further coping skills. MNPR due to cough 05/09/22: Mood improving, still some anxiety. Interested in starting a mood stabilizer medication given possible BPAD type II. Discussed medication treatm ent options in detail. Discussed risks, benefits and alternatives. Patient would like to start and consented to lamictal for BPAD type II vs MDD augmentation. Reviewed side effects including but not limited to: monitoring for rash/fatal rash potential Jeronimo Billy Syndrome, need for slow titration and to restart titration if she misses >2 days of medication. (1) Bipolar II disorder with seasonal pattern: (2) Major depressive disorder, recurrent episode, severe with seasonal pattern: (3) Generalized anxiety disorder with panic attacks: (4) Major depression: (5) Anxiety: (6) Drug overdose: (7) HTN (hypertension): Plan 05/09/22: Start lamictal 25mg qhs. 05/08/22: Continue with current medications and tx plan. 05/07/22: Escitalopram increased to 10mg qd. 05/06/22: titrate Neurontin for ongoing benzo withdrawal/anxiety/sleep disturbance (though Vistaril scheduled for the latter). 05/05/22: [facility] ([facility] health unit) on q15 min checks (behavioral with suicide precautions) for safety. The patient will participate in group, recreational, and milieu therapies and will b e offered additional individual and family sessions as clinically appropriate. Risks/benefits/alternatives reviewed re: Neurontin to assist with transition off of benzos as helpful off label for anxiety and sleep. Patient desires restart previous meds, reviewed would be willing to address Lexapro here but cannot advise restart trazodone or Xanax this close to OD. Albuterol MDI. Consider CXR. currently cough is non productive and afebrile. Inventory Assets Strengths: open, love of son Needs: improving coping skills, outpatient therapy Suicide Risk Level Suicide Risk Level: Moderate (q15 min suicide checks) (suicide attempt prior to admission with ongoing depression and anxiety but lessening, feels safe on unit, agrees to alert staff should SI re-develop or she feel unsafe) Risk Factors Assessment : Yes Do You Have Access To A Gun?: No Mental Health Diagnoses: Yes Substance Use Disorders: No Previous Attempt: No Previous Psychiatric Hospitalization: No Protective Factors Assessment : No Responsible for Young Children: Yes Employed: Yes Supportive Family: Yes Interval History Identifying Information KACEY GRAHAM is a 41-year-old F who currently lives in [place], originally admit to [facility] on 05/01/22 s/p OD and was discharged to on 05/04/22 14:26 on a 201 voluntary commitment for ongoing treatment. Chief Complaint "I'm nervous". Review of Systems Sleep Information Total Hours of Sleep: 5.75 Sleep Comments: vistaril 50 mg po prn @ 2341 Tylenol 650 mg prn pr @ 2337 Meal Information Percent Meal Consumed - Breakfast: 0 Percent Meal Consumed - Lunch: 100 Percent Meal Consumed - Dinner: 90 Subjective Subjective Patient was seen & assessed and interval progress reviewed with treatment team nursing and social work. Engaged with groups last evening. Feels anxious but also ready to start tackling next steps to get situated at her sister's home. Reviewed results of mood disorder questionnaire-significant for history of going ~3 days with periods of elevated energy/increased spending/hypersexuality/talkativeness/increased irritability and decreased sleep. Reviewed possibility of BPAD type II and option for mood stabilizer which she'd like to try. Physical Exam Psychiatric Orientation: alert and oriented x 3 Apperance: appropriately dressed and appropriately groomed Eye Contact: good eye contact Motor Behavior: no abnormal motor movements Speech: normal rate/rhythm/volume of speech Affect: euthymic affect Mood: + anxious mood Thought Process: goal directed thought process Thought Content: reality based without delusions Suicidal Thoughts: denies suicidal thoughts Homicidal Thoughts: denies homicidal thoughts Hallucinations: no auditory hallucinations and no visual hallucinations Cognition: attention grossly intact and language grossly intact Estimated Intelligence: consistent with education level Insight: + fair insight Judgement: + fair judgement Vital Signs (Past 24 Hours) Last Vital Signs Temp 37 C 05/09/22 06:54 Pulse 108 H 05/09/22 06:54 Resp 16 10/31/22 06:54 BP 111/77 05/09/22 06:54 Pulse Ox 98 05/07/22 21:35 O2 Del Method 05/07/22 21:35 Results & Data ([facility]) Current Inpatient Medications Current Inpatient Medications: Current Inpatient Medications Acetaminophen (Acetaminophen 325 Mg Tab) 650 mg PO Q4H PRN PRN Reason: Headache or Minor Fever Stop: 06/03/22 14:23 Last Admin: 05/09/22 05:56 Dose: 650 mg Al Hydrox/Mg Hydrox/Simethicone (Aluminum/Magnesium Susp 30 Ml Udc) 30 ml PO Q4H PRN PRN Reason: GI Upset Stop: 06/03/22 14:23 Albuterol (Albuterol Hfa 8 Gm Inhaler) 2 puffs INH Q4R PRN PRN Reason: Cough Stop: 06/04/22 09:42 Last Admin: 05/07/22 21:34 Dose: 2 puffs Benzonatate (Benzonatate 100 Mg Capsule) 100 mg PO TID FARZAD Stop: 06/03/22 20:59 Last Admin: 05/09/22 08:45 Dose: 100 mg Bismuth Subsalicylate (Bismuth Subsalicylate Liqd 236 Ml) 15 ml PO PRN PRN PRN Reason: Loose Stool Stop: 06/03/22 14:23 Escitalopram Oxalate (Escitalopram Oxalate 10 Mg Tab) 10 mg PO QAM FARZAD Stop: 06/06/22 08:59 Last Admin: 05/09/22 08:45 Dose: 10 mg Gabapentin (Gabapentin 300 Mg Cap) 300 mg PO TID FARZAD Stop: 06/05/22 13:59 Last Admin: 05/09/22 08:45 Dose: 300 mg Hydroxyzine HCl (Hydroxyzine Hcl 25 Mg Tab) 50 mg PO HSZ PRN PRN Reason: Insomnia Stop: 06/03/22 14:23 Last Admin: 05/05/22 23:41 Dose: 50 mg Hydroxyzine HCl (Hydroxyzine Hcl 25 Mg Tab) 25 mg PO Q4H PRN PRN Reason: Anxiety Stop: 06/03/22 14:23 Hydroxyzine HCl (Hydroxyzine Hcl 25 Mg Tab) 50 mg PO HS FARZAD Stop: 06/05/22 21:59 Last Admin: 05/08/22 22:14 Dose: 50 mg Magnesium Hydroxide (Magnesium Hydroxide Susp 30 Ml Udc) 30 ml PO DAILY PRN PRN Reason: Constipation Stop: 06/03/22 14:23 Menthol (Cough Drop (Sugar Free) Bridgett 24 Bridgett/1 Box) 1 bridgett BUCCAL Q1H PRN PRN Reason: Sore Throat Stop: 06/03/22 17:20 Miscellaneous (Remove Nicoderm Patch) 1 each N/A DAILY@2100 FARZAD Stop: 06/07/22 20:59 Last Admin: 05/08/22 22:11 Dose: 1 each Nicotine (Nicotine 21 Mg/24 Hr Tdsy) 21 mg TD QAM FARZAD Stop: 06/07/22 09:44 Last Admin: 05/09/22 08:46 Dose: 21 mg Nicotine Polacrilex (Nicotine Polacrilex 2 Mg Gum) 1 piece MT PRN PRN PRN Reason: nicotine cravings Stop: 06/06/22 15:16 Last Admin: 05/08/22 09:30 Dose: 1 piece Sodium Chloride (Sodium Chloride 0.65% Na Soln 45 Ml ([place])) 1 - 2 sprays NA PRN PRN PRN Reason: Nasal Dryness/Congestion Stop: 06/03/22 14:23 Mental Health & Subst Abuse Tx Psychiatrist Name of Psychiatrist: [facility] Date of Appointment with Psychiatrist: 05/11/22 Time of Appointment with Psychiatrist: 11:40 AM Psychiatric Appointment Comment: [address] [place] [address] Therapist Name of Therapist: [facility] The[facility]'s Therapy Appointment Comment: [address], [address], [place] [address] Post Discharge Appointments Primary Care Physician Name Of Family Doctor: SOCRATES Garcia Primary [facility] Date of Appointment with PCP: 06/08/22 Time of Appointment with PCP: 7 AM Provider Appointment Comment: [address] [address], [place] [address]; please bring ID/insurance (1) Drug overdose Encounter type: initial encounter Injury intent: undetermined intent Qualified Code(s): T50.904A - Poisoning by unspecified drugs, medicaments and biological substances, undetermined, initial encounter
[2022-05-09] MEDS: hydrOXYzine HCl 25 MG TAB PO SCH (21:03)
[2022-05-09] MEDS ORDERED: lamoTRIgine 25 MG TAB PO SCH (22:00)
[2022-05-10] MEDS: ESCITALOPRAM OXALATE 10 MG TAB PO SCH (08:52)
[2022-05-10] MEDS: GABAPENTIN 300 MG CAP PO SCH (08:53)
[2022-05-10] MEDS: NICOTINE 21 MG/24 HR TDSY TD SCH (08:55)
[2022-05-10] MEDS: BENZONATATE 100 MG CAPSULE PO SCH (08:56)
--- NOTE | 2022-05-10 09:36 | Discharge Summary ---
Date of Service May 10, 2022 History of Present Illness As per initial consult: Patient was still rather limited in history, completed a PHQ-9 which was 26 (scored 3 on everything, including SI except 2 on appetite). Family initially thought she seemed fine and that this attempt was out of the blue but there was some concern about a recent argument with her paramour. Patient admit to liaison that she had planned the ingestion. She had just filled Xanax 1 mg BID (prescribed in this dose all year by outpatient psychiatrist Dr. Burk) for 60 pills, only 14 lift, unknown amount of trazodone. It is unclear whether she took any buspar or an old rx of Wellbutrin. Patient is having some tremor and ongoing sedation/low BP but will be moving from ICU to medical floor. Today she states she has been doing "pretty well" over past 2-3 years on her current medication regimen. Today she notes feeling more anxious than yesterday and ongoing going due to laryngeal irritation s/p intubation. She reconfirms taking Xanax twice a day for > 1 year but denies any misuse. She states that she has increased conflict with her boyfriend of 9 years as she discussed them breaking up 2 weeks ago as he is not contributing to the relationship and financially dependent on her for much of the year. He has been threatening to take son. Son is 6 and currently in his care. She owns their home but would like to move in with her sister for awhile after leaving the hospital. She currently regrets her OD and although it was deliberate at the time she was "just done" and is now quite future focussed with regards to work and her son, etc. She recognizes her sister and multiple friends as supports. She denies any history of manic or psychotic symptoms. Physical Exam Vital Signs (Past 24 Hours) Last Vital Signs Temp 36.9 C 05/10/22 06:48 Pulse 93 H 05/10/22 06:49 Resp 16 05/10/22 06:48 BP 109/71 05/10/22 06:49 Pulse Ox 98 05/07/22 21:35 O2 Del Method 05/07/22 21:35 See admission H&P and DOD summary. Principal Diagnosis Bipolar Affective Disorder type II, seasonal depression Psychiatric Data See daily stay summary. In short, patient was engaged with the social/therapeutic milieu of the unit, safety was maintained and the patient was cooperative with care. Medication changes included restarting escitalopram which was titrated to 10mg qd, gabapentin 300mg TID for off-label use for sleep/anxiety, hydroxyzine 50mg qhs for insomnia and lamictal 25mg qd for BPAD type II mood stabilization and depression augmentation and they tolerated this well. Reviewed importance of alerting providers should she develop any type of rash with initiation of lamictal and goal of ongoing titration in outpatient setting over time. A family session was held and safety plan was completed prior to discharge. She actively and insightfully participated in safety planning and in discussions about ways to seek support and recognizing warning signs and utilizing coping skills. Reviewed mobile apps that could be used for additional ways to have their safety plan and contacts easily available should thoughts of SI re-emerge in the future. Reviewed importance of seeking emergency care should SI intensify, worsen or should they feel unsafe in the future which they agree to do. On the day of discharge she stated her mood was "really good" and remained future-oriented including seeing her son, seeing her pets, moving in with her sister and engaging in aftercare appointments for psychiatry, therapy and primary care. Day of Discharge Assessment Today the patient voices readiness for discharge. They note improvement in mood and anxiety. They deny thoughts of harm to self or others. Thoughts are organized and they are clinically improved from admission. There is no evidence of psychosis. They improved in the hospital with support and medication adjustments. They agree to take medications as prescribed and keep follow-up appointments. At the time of the discharge they are deemed to be stable and appropriate for outpatient level of care. They are not deemed to be at imminent risk of harm to self or others. They are aware of emergency and crisis services. Knows to call 911 or go to nearest emergency care center if in a crisis which cannot be handled as an outpatient. Transition of Care Transition Of Care Record: was reviewed with the patient Advance Directives Advance Directives Information Provided: Yes Advance Directives: No Mental Health Advance Directive: No Advance Directives on File: No Living Will: No Power of Finisher Wallboard And Plasterboard: No Advance Directives Reason:: Declines as Mental Health Visit. Suicide Risk Level Suicide Risk Level Comments: Acute risk is low given improvement in mood and denial of SI, lack of access to lethal means, improvement in sleep, hopefulness. Chronic risk is moderate given periods of impulsivity,prior attempt, mood disorder but also with protective factors including caring for young child, employed, supportive family, motivated to engage in outpatient care, able to establish therapeutic alliance with providers. Counseled on ways to reduce acute and chronic risk including engaging with outpatient providers, using safety plan if needed, utilizing supports, taking medication, and using coping skills. Modifiable risk factors of SI and depression were addressed during hospitalization through development of new coping skills, family meeting, safety planning, and medication adjustments. Risk Factors Assessment : Yes Do You Have Access To A Gun?: No Mental Health Diagnoses: Yes Substance Use Disorders: No Previous Attempt: No Previous Psychiatric Hospitalization: No Hopelessness: No Protective Factors Assessment : No Responsible for Young Children: Yes Employed: Yes Supportive Family: Yes Tobacco Cessation at Discharge Tobacco Cessation Medication Prescribed at Discharge: Offered & Prescribed Practical counseling provided including: developing coping skills and providing basic information about quitting (referred to quit line ) Hospital Course (1) Bipolar II disorder with seasonal pattern: (2) Major depressive disorder, recurrent episode, severe with seasonal pattern: (3) Generalized anxiety disorder with panic attacks: (4) Major depression: (5) Anxiety: (6) Drug overdose: (7) HTN (hypertension): Plan 05/09/22: Start lamictal 25mg qhs. 05/08/22: Continue with current medications and tx plan. 05/07/22: Escitalopram increased to 10mg qd. 05/06/22: titrate Neurontin for ongoing benzo withdrawal/anxiety/sleep disturbance (though Vistaril scheduled for the latter). 05/05/22: The patient was admitted to the [facility] ([facility] unit) on q15 min checks (behavioral with suicide precautions) for safety. The patient will participate in group, recreational, and milieu therapies and will be offered additional individual and family sessions as clinically appropriate. Risks/benefits/alternatives reviewed re: Neurontin to assist with transition off of benzos as helpful off label for anxiety and sleep. Patient desires restart previous meds, reviewed would be willing to address Lexapro here but cannot advise restart trazodone or Xanax this close to OD. Albuterol MDI. Consider CXR. currently cough is non productive and afebrile. Mental Health & Subst Abuse Tx Psychiatrist Name of Psychiatrist: [facility] Date of Appointment with Psychiatrist: 05/11/22 Time of Appointment with Psychiatrist: 11:40 AM Psychiatric Appointment Comment: [address] [place] [address] Therapist Name of Therapist: Latrell Escalona Therapist's Date of Therapist Appointment: 05/19/22 Time of Therapist Appointment: 8:30am Therapy Appointment Comment: [address] [facility], [address], [place] [address] Post Discharge Appointments Primary Care Physician Name Of Family Doctor: SOCRATES Garcia Primary [facility] Date of Appointment with PCP: 06/08/22 Time of Appointment with PCP: 7 AM Provider Appointment Comment: [address] [address], [place] [address]; please bring ID/insurance Smoking Cessation Counseling Tobacco Cessation Medication Prescribed at Discharge: Offered & Prescribed Discharge Plan Discharge Items Patient Disposition: Home - Self-Care Reason For Visit: MDD Discharge Diagnosis: Bipolar Affective Disorder type II with seasonal depression Activity: Resume your previous activity Non-emergency contact: Primary Care Provider, Psychiatrist and Therapist Call non-emergency contact if: you have any medication questions and your symptoms worsen Follow-up/Referrals: PCP,NO [Primary Care Provider] - Diet: Regular Addtl Attending Provider Instructions: Optional mobile apps we discussed: -Suicide safety plan -Virtual Hope Box -Panic Student Worker SPECIAL CARE INSTRUCTIONS: 1. Follow through with your scheduled aftercare appointments. If unable to keep an appointment, please call to reschedule. 2. Take your medication only as prescribed. Medication should not be changed or stopped without the approval of your doctor. In the event of worsening symptoms or concerns about side effects, contact your doctor immediately. 3. Utilize new healthy coping skills, anger management skills, and stress management skills learned during your hospitalization. Journal feelings and process them with a support person. Identify stressors or situations that may result in relapse, deterioration or inappropriate behaviors and develop a plan to deal with those issues. 4. If your coping skills are ineffective and you are in crisis, contact your outpatient providers for direction. If unable to reach your providers, please call the [facility] CRISIS LINE AT , go to the [facility] walk-in center at [address], [address], [place], or go to the closest Emergency Room. 5. Avoid alcohol and un-prescribed drugs. 6. You have been provided with the Mental Health Advance Directives Pamphlet for your review. 7. Your condition is stable for discharge to outpatient level of care, but recovery is an ongoing process. Ifthoughts to harm yourself or others return, follow the safety plan developed during your stay. Planning for a safe return home includes securing weapons. Our treatment team recommends weaponsbe removed from the home until your outpatient provider reassesses your progress. In rare cases where the items themselvescannot be removed, guns and ammunitionshould be secured separatelyand keys stored by a reliable personoutside of the home. If you were admitted on an involuntary commitment, the police or other legal authorities may be involved in this process. AFTERCARE APPOINTMENTS: * Please call your insurance company prior to your scheduled appointment to confirm your aftercare providers are covered. Take your insurance information to your appointments. WHO TO CALL AND WHEN: Medical Emergencies: For questions or emergencies related to your hospital stay, please contact the Inpatient Behavioral Health Unit at [phone]. A advanced practice psychiatric nurse is on-call 30/01 for the Behavioral Health Unit for emergencies At any time you feel your situation is an emergency, you may also call 911 immediately. Pending Studies at Discharge: No Stand-Alone Forms: My [facility], Smoking Cessation Medications and DC Order Prescriptions: New albuterol sulfate [Ventolin HFA] 90 mcg/actuation Hfa Aerosol Inhaler 2 puff inhalation BID PRN (Reason: shortness of breath or wheezing) 30 Days Qty: 6.7 0RF nicotine [Nicoderm CQ] 21 mg/24 hr Patch 24 Hour 21 mg transdermal QAM 28 Days Qty: 28 0RF nicotine (polacrilex) [Nicorette] 2 mg Gum 2 mg MT Q8H PRN (Reason: nicotine cravings) 30 Days Qty: 100 0RF escitalopram oxalate 10 mg Tablet 10 mg PO QAM 30 Days Qty: 30 0RF gabapentin 300 mg Capsule 300 mg PO TID 30 Days Qty: 90 0RF hydroxyzine HCl 25 mg Tablet 25 mg PO BID PRN (Reason: anxiety/insomnia) 30 Days Qty: 60 0RF hydroxyzine HCl 50 mg tablet 50 mg PO HS 30 Days Qty: 30 0RF lamotrigine [Lamictal] 25 mg Tablet 25 mg PO HS 14 Days Qty: 14 0RF benzonatate 100 mg Capsule 100 mg PO TID 7 Days Qty: 21 0RF Discontinued alprazolam 1 mg tablet 1 mg PO BID PRN (Reason: Anxiety) Rx Instructions: per [facility], can not confirm with patient trazodone 50 mg tablet 50 mg PO HS PRN (Reason: Sleep) Rx Instructions: Per [facility], could not cofirm with patient buspirone 30 mg tablet 30 mg PO BID Rx Instructions: per [facility], could not confirm with patient. Last filled in february 2022 for 30 day supply. Discharge Orders: Discharge Order (Routine); Ordered 05/10/22 Ordered By: Ana Paula Murphy Admission Data Admit Date/Time: 05/04/22 14:26 Attending Provider: Renate Egan Admit Provider: Renate Egan Primary Care Provider: PCP,NO Other Interventions: Discharge Summary Assessment (RN) Last Done: 05/10/22 10:17 PSY Interdisciplinary Discharge Planning Last Done: 05/10/22 10:20 Coding Level of Care Code 52439 D/C day mgmt > 30 min Diagnoses Bipolar II disorder with seasonal pattern F31.81 Major depressive disorder, recurrent episode, severe with seasonal pattern F33.2 Generalized anxiety disorder with panic attacks F41.1; F41.0 Major depression F32.9 Anxiety F41.9 Drug overdose T50.904A Encounter type: initial encounter Injury intent: undetermined intent HTN (hypertension) I10 Time Spent (min) 35
[2022-05-10] MEDS ORDERED: DESTROY THIS MEDICATION ONE (10:03)
== END 2022-05-10 11:03 | disposition home or self-care (01) | DRG 885 ==
LOC: 3S 14:26